=== PATIENT | female | born 1960 | race Caucasian/White ===

== ENCOUNTER → 2016-09-18 | Outpatient (CLI) | payer BC ==
[~2016-09-18] MED LIST: ALBUAER2 INH; ATOR-22 PO; CLCC1250 PO; CLON0.5T3 PO; CYM60 PO; PRLSR20 PO; SYN100 PO; TRAM-10 PO
--- NOTE | 2016-09-18 13:39 | DIAGNOSTIC IMAGING REPORT ---
LUMBAR SPINE 5 VIEWS CLINICAL HISTORY: Chronic low back pain. FINDINGS: 5 views of the lumbar spine are compared to study dated 06/14/2015. The skeletal structures are osteopenic. There is no radiographic evidence of fracture or malalignment. Vertebral body height and alignment are maintained. There is mild straightening of the lumbar lordosis. The transverse and spinous processes are intact. There is no evidence of spondylolysis. The intervertebral disc spaces are well-maintained. Minimal facet arthropathy is seen in the lower lumbar region. The visualized bony pelvis appears intact. Mild sclerotic change is noted in the sacroiliac joints. There is a nonobstructed abdominal bowel gas pattern. Cholecystectomy clips are seen in the right upper quadrant. A surgical clip is also noted in the right pelvis. IMPRESSION: There is no acute bony abnormality seen involving the lumbosacral spine and there is been no significant change from 06/14/2015. Electronically signed by: Balaji Dodge M.D. 09/18/2016 1:37 PM Dictated Date/Time: 09/18/2016 1:35 PM
--- NOTE | 2016-09-18 13:42 | DIAGNOSTIC IMAGING REPORT ---
SI JOINTS 3 OR MORE VIEWS CLINICAL HISTORY: Back pain COMPARISON STUDY: 06/14/2015 FINDINGS: No fractures are visualized. There is no evidence of SI joint fusion. There are no erosive changes. IMPRESSION: No evidence of an inflammatory sacroiliitis. No evidence of fracture Electronically signed by: Christian Mccarthy M.D. 09/18/2016 1:41 PM Dictated Date/Time: 09/18/2016 1:40 PM
== END | disposition home or self-care (01) ==
LOC: C.RAD1850 13:10
DX: M47.9 Spondylosis, unspecified (principal); M54.5 Low back pain

== ENCOUNTER → 2016-12-24 | Outpatient (CLI) | payer BC | END | disposition home or self-care (01) | LOC: C.LABSPEC 17:00 | DX: R30.0 Dysuria (principal) ==

== ENCOUNTER → 2017-03-06 | Outpatient (CLI) | payer BC | END | disposition home or self-care (01) | LOC: C.LABSPEC 14:25 | DX: N39.0 Urinary tract infection, site not specified (principal) ==

== ENCOUNTER → 2018-01-06 | Outpatient (CLI) | payer OTHER ==
[~2018-01-06] MED LIST changes: -CLON0.5T3 PO; +KLN/5 PO
== END | disposition home or self-care (01) ==
LOC: C.MAMM 09:08
DX: M85.88 Other specified disorders of bone density and structure, other site (principal); M85.851 Other specified disorders of bone density and structure, right thigh; M85.852 Other specified disorders of bone density and structure, left thigh

== ENCOUNTER → 2018-01-06 | Outpatient (CLI) | payer OTHER ==
--- NOTE | 2018-01-06 15:35 | DIAGNOSTIC IMAGING REPORT ---
CHEST 2 VIEWS ROUTINE CLINICAL HISTORY: 57 years-old Female presenting with TIA. TECHNIQUE: PA and lateral views of the chest were obtained. COMPARISON: 06/14/2015. FINDINGS: Cardiomediastinal silhouette normal. Lungs and pleural spaces clear. Osseous structures normal. Upper abdomen normal. IMPRESSION: 1. No acute cardiopulmonary disease. Electronically signed by: Ishaan Issa M.D. 01/06/2018 3:34 PM Dictated Date/Time: 01/06/2018 3:33 PM
[2018-01-06 16:20] LABS: CKMB < 1.0 ng/ml (0.5-3.6)
== END | disposition home or self-care (01) ==
LOC: C.CPL 14:53
DX: G45.9 Transient cerebral ischemic attack, unspecified (principal); R07.9 Chest pain, unspecified

== ENCOUNTER 2022-11-26 17:20 | Inpatient (IN) ==
--- NOTE | 2022-11-26 18:59 | History & Physical Report ---
Date of Service November 26, 2022 Assessment & Plan (1) Dysphagia: Plan: with odynophagia and history of oral thrush High risk of candidiasis with immunosuppressed state Will defer treatment on admission as minimal thrush on hard palate and wish to confirm diagnosis on EGD tomorrow Consult GI for consideration of EGD (2) Oral thrush: (3) Mouth ulcers: Plan: Mainly on lips - no pictures available to see if classical HSV blisters. No improvement on Valtrex or acyclovir but I'm also not sure she was taking this consistently as it Will defer treatment on admission but could consider IV acyclovir while here but currently crusted over and not classical for HSV therefore will defer for oncology tomorrow - could consider ID consult Concern for mucositis although no actual ulcers in her mouth I could see - consult oncology, certainly would rule out esophageal candidiasis prior to treatment with steroids. Magic mouth wash for pain (4) Bilateral conjunctivitis: Plan: Discharge with lack of eye pain - suspect conjunctivitis rather than uveitis on admission No ongoing discharge to suggest bacterial Biofire PCR order Continue to monitor for eye pain suggestive of uveitis (5) Lung cancer: Plan: Prior treated with Keytruda and radiation Switch pain management to IV morphine as oral morphine causing her lip swelling to be worse Continue lorazepam to help with anxiety and sleep Continue cough syrup to help with this (6) Electrolyte abnormality: Plan: Magnesium and potassium supplementation IV ordered (7) Hypertension: Plan: Discontinue lisinopril as possible angioedema and suspect she does not need this for her BP with recent weight loss Plan VTE Prophyalxis - deferred pending need for EGD Diet - regular minced and moist, NPO after midnight Disposition - admit to med/surg Admission and Anticipated Discharge Date Admission Date: November 26, 2022 History of Present Illness Chief Complaint: Mouth pain and lip ulcers, failure to thrive, weight loss Primary Care Provider: Antonio Luna DO Cindi Santiago is a 62 year old female with metastatic pleomorphic carcinoma of the lung who is directly admitted from the oncology office due to failure to thrive, mouth ulcers, weight loss and decreased oral intake. She has been treated with radiation and Keytruda with last treatment on November 19. She reports fatigue and generalized weakness with these treatments with a dry cough. Her current main issues however are dysphagia, odynophagia, mouth pain, lip swelling with ulcers. Initially started with lip swelling with one lesion on her lip around November 12. She thought is was radiation luciano initially just on her lower lip. Since then it has been slowly getting worse every day with subsequent pain in her mouth. She was treated initially with Levaquin on November [address] Jesus reportedly for the swelling. Pulmonology treated her for thrush on November 12 which she reports initially helped but she is no longer taking, she also stopped her Trelegy Ellipta to help with this. She was given Valtrex on November 19 after an ER visit and then switched to acyclovir by her oncologist on November 20 - presumably for HSV. She has been given liquid morphine for pain but feels her lip swelling is worse on this and has not taken it for a couple of days. She was seen by oncology today and some concern for mucositis secondary to Keytruda and also patient with weight loss of 7lb over the last week. Requesting admission for possible EGD and rheumatology consult. Allergies Allergy/AdvReac Type Severity Reaction Status Date / Time latex Allergy Unknown rash Verified 10/31/22 09:16 acetaminophen [From Percocet] AdvReac Verified 10/31/22 09:16 oxycodone [From Percocet] AdvReac Verified 10/31/22 09:16 SULFA Allergy Unknown Uncoded 10/31/22 09:16 Home Medications Medication Instructions Recorded Confirmed Type albuterol sulfate 90 mcg/actuation 2 puff inhalation Q6H PRN 09/08/21 11/26/22 History aerosol inhaler Shortness Of Breath cholecalciferol (vitamin D3) 50 50 mcg PO DAILY 09/08/21 11/26/22 History mcg (2,000 unit) capsule lisinopril 40 mg tablet 40 mg PO DAILY 09/08/21 11/26/22 History multivit with 1 tab PO DAILY 09/08/21 11/26/22 History ppxaxvga-qttt-QY-lutein 8 mg iron-400 mcg-300 mcg tablet (Centrum Silver Women) pantoprazole 40 mg tablet,delayed 40 mg PO DAILY 01/12/22 11/26/22 History release (Protonix) aspirin 81 mg tablet,delayed 81 mg PO DAILY #30 tabs 04/25/22 11/26/22 Rx release calcium carbonate 500 mg-vitamin 1 tab PO DAILY #30 tabs 04/25/22 11/26/22 Rx D3 15 mcg (600 unit) tablet (Os-Drew 500 + D3) tramadol 50 mg tablet 50 mg PO Q4H PRN pain #30 tabs 06/12/22 11/26/22 Rx morphine 100 mg/5 mL oral 10 mg PO .Q4-6H PRN Pain 09/05/22 11/26/22 History concentrate prochlorperazine maleate 10 mg 10 mg PO Q6H PRN Nausea 09/05/22 11/26/22 History tablet (Compazine) levothyroxine 112 mcg tablet 112 mcg PO DAILY #90 tabs 09/17/22 11/26/22 Rx (Synthroid) fluticasone fur. 100 mcg-umeclid 1 inh inhalation DAILY #60 ea 10/08/22 11/26/22 Rx 62.5 mcg-vilant 25 mcg inhalat.powder (Trelegy Ellipta) compressor, for nebulizer #1 ea 11/12/22 11/12/22 Rx nebulizer accessories #2 ea 11/12/22 11/12/22 Rx ondansetron 8 mg disintegrating 8 mg PO Q8H #90 tabs 11/12/22 11/26/22 Rx tablet ipratropium 0.5 mg-albuterol 3 mg 3 ml inhalation Q4H PRN shortness 11/15/22 11/26/22 Rx (2.5 mg base)/3 mL nebulization of breath or wheezing #180 mL soln hydrocodone-homatropine 5 mg-1.5 5 ml PO Q6H PRN cough #200 mL 11/18/22 11/26/22 Rx mg/5 mL (5 mL) oral syrup (Hycodan) lidocaine HCl 2 % mucosal solution 2.5 ml mucous membrane BID PRN 11/18/22 11/26/22 Rx (Lidocaine Viscous) mouth pain #100 mL lorazepam 1 mg tablet 1 mg PO Q8H PRN Anxiety / insomnia 11/26/22 11/26/22 History Past Med/Surg History Medical History (Updated 11/26/22 @ 22:37 by Jaspal Doherty MD) Abnormal CT scan of lung Acid reflux Pace esophagus Brain metastases 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 Diverticulosis GROSS (dyspnea on exertion) Fibromyalgia Graves disease Hemoptysis Hiatal hernia Hypercholesteremia Hypertension IBS (irritable bowel syndrome) 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 Lung mass Malignant neoplasm of lower lobe, right bronchus or lung Mediastinal adenopathy Ovarian cyst Pulmonary nodule Recurrent urinary tract infection Thyroid disorder Surgical History H/O endoscopy H/O shoulder surgery Right shoulder - rotator cuff surgery H/O: hysterectomy History of cholecystectomy History of colonoscopy History of surgery Benign left breast removed at 13yo - benign per pt S/P bronchoscopy Family History Mother Heart disease Cancer Stroke Diabetes Aunt Cancer Lung cancer Uncle Cancer Father Ruptured aortic aneurysm Hypertension Sister Aortic aneurysm Sister No problems noted. Brother No problems noted. Son No problems noted. Daughter No problems noted. Daughter History of brain surgery Multiple sclerosis Social History Smoking Status: Former smoker Age Started Using Tobacco: 13; Age Quit Using Tobacco: 60; packs per day: 0.5; Cigarettes Per Day: 1/2 PPD x 25yrs; Second Hand Exposure: Yes; Do You Dip or Chew Tobacco: No; Hx Alcohol Use: No Hx Substance Use: No Preferred Language: Bhutanese Communication Ability: Effective Visual Impairment: No Limitations Hearing Ability: Normal Wax Engraver Required: No Beliefs That Will Affect Care: None marital status: Current Living Situation: Family current occupational status: retired How many Children do You have: 3 Other Information That Helps Us Care for You: No Feels Safe at Home: Yes Safety Concerns: Feels Safe At This Time Childhood Exposure to Second-Hand Smoke: Yes Diet: regular caffeine: Yes (2 cups/day) during the past year weight has: remained stable Dental Care, Regularly: Yes Physical Activity Frequency: Daily Seatbelt Use: always Sunscreen Use: Yes Assistive Devices: Glasses Review of Systems Review of Systems: All systems reviewed & are unremarkable except as noted in HPI & below Physical Exam Constitutional: well developed; + not well nourished and no acute distress Eyes: + conjunctival abnormality (widespread erythema), PERRL and EOM intact bilaterally ENMT: few white spots on hard palate Tongue is mildly swollen and erythematous No oral ulcers present Crusting of lips which easily bleed, swollen, no blistering present Respiratory: normal respiratory effort, lungs clear to auscultation Cardiovascular: Rate/Rhythm: regular rate and regular rhythm Heart Sounds: no murmur Extremities: normal capillary refill; no calf tenderness and no pedal edema Gastrointestinal (Abdomen): Inspection/Auscultation: abdomen normal to inspection; abdomen not distended Percussion/Palpation: abdomen soft; abdomen nontender, no guarding and abdomen not rigid Musculoskeletal: no cyanosis or clubbing, extremities motor strength 5/5 Skin: Other than lips, no skin rash present Neurologic: moves all extremities and awake; not confused Psychiatric: A+Ox3, euthymic affect Code Status & VTE Plan Code Status Full VTE Prophylaxis Plan VTE Prophylaxis will be ordered: Yes PG Care Time/CCT Total # of Minutes Spent Total Time Spent: 105 Total Time Spent with Patient: Total time spent is greater than 50% in coordination of care (as documented) at patient's floor/unit and/or counseling patient: Coding Level of Care Code 91777 INT INP/OBS CARE 3/75MIN Diagnoses Dysphagia R13.10 Oral thrush B37.0 Mouth ulcers K12.1 Bilateral conjunctivitis H10.9 Lung cancer C34.90 Electrolyte abnormality E87.8 Hypertension I10
[2022-11-26] MEDS ORDERED: MoRPHine SULFATE 2 MG/ML CARP IV PRN (19:57)
[2022-11-26] MEDS ORDERED: ONDANSETRON INJ 2 MG/ML 2 ML VIAL IV PRN (19:57)
[2022-11-26] MEDS ORDERED: HYDROcodone/HOMATROPINE SYRUP 5MG/1.5MG 5ML UDP PO PRN (20:03)
[2022-11-26 20:14] LABS: C Reactive Protein 5.82 mg/dl (0-0.5)
[2022-11-26] MEDS: POTASSIUM CHLORIDE / WTR 10 MEQ/100 ML PLCT IV SCH ×2 (20:19→23:26)
[2022-11-26 20:23] LABS: INR 1.1 (0.9-1.1); Partial Thromboplastin Ratio 0.9; Partial Thromboplastin Time 24.4 Seconds (21.0-31.0); Prothrombin Time 11.7 Seconds (9.0-12.0)
[2022-11-26] MEDS: FIRST - Mouthwash BLM 119 ML PO PRN (21:02)
[2022-11-26] MEDS: PANTOprazole 40 MG in SYRINGE 0 ML IV SCH (21:05)
[2022-11-26 22:12] LABS: Adenovirus PCR Not Detected (NotDetected); Bordetella parapertussis PCR Not Detected (NotDetected); Bordetella pertussis PCR Not Detected (NotDetected); Chlamydia pneumoniae PCR Not Detected (NotDetected); Coronavirus 229E PCR Not Detected (NotDetected); Coronavirus CoV-2 (COVID19)PCR Not Detected (NotDetected); Coronavirus HKU1 PCR Not Detected (NotDetected); Coronavirus NL63 PCR Not Detected (NotDetected); Coronavirus OC43PCR Not Detected (NotDetected); Human Metapneumovirus PCR Not Detected (NotDetected); Influenza A PCR Not Detected (NotDetected); Influenza B PCR Not Detected (NotDetected); Mycoplasma pneumoniae PCR Not Detected (NotDetected); Parainfluenza Virus 1 PCR Not Detected (NotDetected); Parainfluenza Virus 2 PCR Not Detected (NotDetected); Parainfluenza Virus 3 PCR Not Detected (NotDetected); Parainfluenza Virus 4 PCR Not Detected (NotDetected); Respiratory Syncytial VirusPCR Not Detected (NotDetected); Rhinovirus/Enterovirus PCR Not Detected (NotDetected)
[2022-11-26] MEDS: MAGNESIUM SULFATE / D5W 1 GM/100 ML BAG IV SCH (22:23)
[2022-11-26] MEDS: LORazepam 1 MG TAB PO PRN (23:09)
[2022-11-27] MEDS: MAGNESIUM SULFATE / D5W 1 GM/100 ML BAG IV SCH ×2 (00:18→01:43)
[2022-11-27] MEDS: LACTATED RINGER'S 1,000 ML IV SCH ×2 (03:45→16:08)
[2022-11-27] MEDS: LEVOTHYROXINE SODIUM 112 MCG TABLET PO SCH (06:01)
[2022-11-27] MEDS: FIRST - Mouthwash BLM 119 ML PO PRN ×2 (06:03→20:54)
[2022-11-27 06:54] LABS: Appearance Urine Clear (Clear); Bacteria Urine Automated Negative (Negative); Bilirubin Urine Negative (Negative); Blood Urine 2+ (Negative); Color Urine Yellow; Epithelial Cell Urine Auto >30 /lpf (0-5); Glucose Urine UA Negative (Negative); Ketones Urine 1+ (Negative); Leukocyte Esterase Urine 1+ (Negative); Nitrite Urine Negative (Negative); Protein Urine Negative (Negative); Specific Gravity Urine 1.015 (1.000-1.030); Urobilinogen Urine Negative (Negative); pH Urine 5.5 (4.5-7.5)
[2022-11-27 07:26] LABS: Albumin Globulin Ratio 0.9 (0.9-2); BUN Creatinine Ratio 15.1 (10-20); Bilirubin,Total 0.4 mg/dl (0.2-1.0); Calcium 8.3 mg/dl (8.6-10.3); Creatinine Clr Calc Pharmacy 96.5 ml/min; Est GFR (African American) 116.3 ml/min; Est GFR (Non-African American) 100.3 ml/min; Globulin 3.5 gm/dl (2.5-4.0); Magnesium 2.3 mg/dl (1.7-2.4); Phosphorus 3.1 mg/dl (2.5-4.9); Potassium 3.5 mmol/L (3.5-5.1); Total Protein 6.5 gm/dl (6.0-8.3)
[2022-11-27 07:30] LABS: Basophils # (auto) 0.03 K/uL (0-0.2); Basophils % (auto) 0.4 %; Eosinophils % (auto) 2.4 %; Hematocrit (blood only) 33.9 % (37.0-47.0); Hemoglobin 11.4 g/dl (12.0-16.0); Immature Granulocytes # (auto) 0.03 K/uL (0.01-0.20); Immature Granulocytes % (auto) 0.4 %; Lymphocytes # (auto) 1.35 K/uL (1.2-3.4); Lymphocytes % (auto) 16.3 %; Mean Corpuscular Hemoglobin 30.1 pg (25.0-34.0); Mean Corpuscular Hgb Conc 33.6 g/dL (32.0-36.0); Mean Corpuscular Volume 89.4 fL (80.0-100.0); Mean Platelet Volume 9.5 fL (9.4-12.4); Monocytes # (auto) 0.55 K/uL (0.11-0.59); Monocytes % (auto) 6.6 %; Neutrophils # (auto) 6.13 K/uL (1.40-6.50); Neutrophils % (auto) 73.9 %; Platelet Count 436 K/uL (130-400); RDW Coefficient of Variation 15.1 % (11.5-14.5); RDW Standard Deviation 49.1 fL (36.4-46.3); Red Blood Count 3.79 M/uL (4.20-5.40); White Blood Count 8.29 K/ul (4.8-10.8)
--- NOTE | 2022-11-27 08:54 | Gastrointestinal Consultation ---
Date of Consultation November 27, 2022 Assessment & Plan (1) Dysphagia: Pleasant woman with dysphagia. From my interview with her it seems that most of her troubles are oropharyngeal and not esophageal. I would begin the workup with ENT or oral surgery consultation rather than EGD. I do not visualize the oropharynx as well with endoscope as well as ENT does. If they do not find anything that explains her problems then I can do EGD. I will follow History of Present Illness Reason for Consultation: dysphagia Attending Physician: Huan Almonte DO History of Present Illness 62 year old female who is being treated for lung cancer. She has had radiation to her upper chest. She is getting chemotherapy. Recently she has developed mouth ulcers and difficulty swallowing. On close questioning she says it is painful in her neck/mouth area when she swallows and she feels like she chokes when she initiates a swallow. Once it gets into her chest/esophagus she doesn't have any pain although she says on occasion it feels like it goes slow. She does not have dysphagia. All of this is relatively new. She has had an EGD she says about a year ago and a colonoscopy several months ago at [facility]. Allergies Allergy/AdvReac Type Severity Reaction Status Date / Time latex Allergy Unknown rash Verified 10/31/22 09:16 acetaminophen [From Percocet] AdvReac Verified 10/31/22 09:16 oxycodone [From Percocet] AdvReac Verified 10/31/22 09:16 SULFA Allergy Unknown Uncoded 10/31/22 09:16 Home Medications Medication Instructions Recorded Confirmed Type albuterol sulfate 90 mcg/actuation 2 puff inhalation Q6H PRN 09/08/21 11/26/22 History aerosol inhaler Shortness Of Breath cholecalciferol (vitamin D3) 50 50 mcg PO DAILY 09/08/21 11/26/22 History mcg (2,000 unit) capsule lisinopril 40 mg tablet 40 mg PO DAILY 09/08/21 11/26/22 History multivit with 1 tab PO DAILY 09/08/21 11/26/22 History qreotazo-hqrk-ID-lutein 8 mg iron-400 mcg-300 mcg tablet (Centrum Silver Women) pantoprazole 40 mg tablet,delayed 40 mg PO DAILY 01/12/22 11/26/22 History release (Protonix) aspirin 81 mg tablet,delayed 81 mg PO DAILY #30 tabs 04/25/22 11/26/22 Rx release calcium carbonate 500 mg-vitamin 1 tab PO DAILY #30 tabs 04/25/22 11/26/22 Rx D3 15 mcg (600 unit) tablet (Os-Drew 500 + D3) tramadol 50 mg tablet 50 mg PO Q4H PRN pain #30 tabs 06/12/22 11/26/22 Rx morphine 100 mg/5 mL oral 10 mg PO .Q4-6H PRN Pain 09/05/22 11/26/22 History concentrate prochlorperazine maleate 10 mg 10 mg PO Q6H PRN Nausea 09/05/22 11/26/22 History tablet (Compazine) levothyroxine 112 mcg tablet 112 mcg PO DAILY #90 tabs 09/17/22 11/26/22 Rx (Synthroid) fluticasone fur. 100 mcg-umeclid 1 inh inhalation DAILY #60 ea 10/08/22 11/26/22 Rx 62.5 mcg-vilant 25 mcg inhalat.powder (Trelegy Ellipta) compressor, for nebulizer #1 ea 11/12/22 11/12/22 Rx nebulizer accessories #2 ea 11/12/22 11/12/22 Rx ondansetron 8 mg disintegrating 8 mg PO Q8H #90 tabs 11/12/22 11/26/22 Rx tablet ipratropium 0.5 mg-albuterol 3 mg 3 ml inhalation Q4H PRN shortness 11/15/22 11/26/22 Rx (2.5 mg base)/3 mL nebulization of breath or wheezing #180 mL soln hydrocodone-homatropine 5 mg-1.5 5 ml PO Q6H PRN cough #200 mL 11/18/22 11/26/22 Rx mg/5 mL (5 mL) oral syrup (Hycodan) lidocaine HCl 2 % mucosal solution 2.5 ml mucous membrane BID PRN 11/18/22 11/26/22 Rx (Lidocaine Viscous) mouth pain #100 mL lorazepam 1 mg tablet 1 mg PO Q8H PRN Anxiety / insomnia 11/26/22 11/26/22 History Patient History Medical History Abnormal CT scan of lung Acid reflux Pace esophagus Brain metastases 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 Diverticulosis GROSS (dyspnea on exertion) Fibromyalgia Graves disease Hemoptysis Hiatal hernia Hypercholesteremia Hypertension IBS (irritable bowel syndrome) 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 Lung mass Malignant neoplasm of lower lobe, right bronchus or lung Mediastinal adenopathy Ovarian cyst Pulmonary nodule Recurrent urinary tract infection Thyroid disorder Surgical History H/O endoscopy H/O shoulder surgery Right shoulder - rotator cuff surgery H/O: hysterectomy History of cholecystectomy History of colonoscopy History of surgery Benign left breast removed at 13yo - benign per pt S/P bronchoscopy Family History Mother , 84yo Heart disease aortic aneurysm Cardiac stents Cancer Pt unsure of type Stroke Diabetes Aunt Cancer Lung cancer Uncle Cancer Father , 68yo Ruptured aortic aneurysm Hypertension Sister Aortic aneurysm Sister No problems noted. Brother No problems noted. Son No problems noted. Daughter No problems noted. Daughter History of brain surgery [place] [facility] [place] Social History Smoking Status: Former smoker Age Started Using Tobacco: 13; Age Quit Using Tobacco: 60; packs per day: 0.5; Cigarettes Per Day: 1/2 PPD x 25yrs; Second Hand Exposure: Yes; Do You Dip or Chew Tobacco: No; Hx Alcohol Use: No Hx Substance Use: No Preferred Language: [place]gu[place] Communication Ability: Effective Visual Impairment: No Limitations Hearing Ability: Normal Information Systems Technician Required: No Beliefs That Will Affect Care: None marital status: Current Living Situation: Family current occupational status: retired How many Children do You have: 3 Other Information That Helps Us Care for You: No Feels Safe at Home: Yes Safety Concerns: Feels Safe At This Time Childhood Exposure to Second-Hand Smoke: Yes Diet: regular caffeine: Yes (2 cups/day) during the past year weight has: remained stable Dental Care, Regularly: Yes Physical Activity Frequency: Daily Seatbelt Use: always Sunscreen Use: Yes Assistive Devices: Glasses Review of Systems Review of Systems: All systems reviewed & are unremarkable except as noted in HPI & below Physical Exam Constitutional: WD/WN, vitals as above no acute distress Eyes: PERRL, conjunctivae normal, anicteric sclerae ENMT: external ear and nose normal, oropharynx normal Mouth: + lip abnormality (numerous blisters) Neck: trachea midline, no thyromegaly Respiratory: normal respiratory effort, lungs clear to auscultation Cardiovascular: RRR, no murmur, no edema Gastrointestinal (Abdomen): normal bowel sounds, soft, nontender, no hepatosplenomegaly Musculoskeletal: Extremities: no cyanosis and no clubbing Skin: no rashes, warm and dry Neurologic: PERRL, EOMI, accommodation nl, no face palsy, no dysarthria Psychiatric: Orientation: alert and oriented x 3 Results & Data Vital Signs (Past 12 Hours) Vital Signs Temp Pulse Resp BP Pulse Ox O2 Del Method 11/27/22 06:46 37.4 C 75 16 105/72 97 Room Air 11/27/22 00:20 36.7 C 80 16 126/80 96 Room Air Laboratory Results 11/27/22 11/27/22 11/27/22 Range/Units 06:45 06:32 06:32 WBC 8.29 (4.8-10.8) K/ul RBC 3.79 L (4.20-5.40) M/uL Hgb 11.4 L (12.0-16.0) g/dl Hct 33.9 L (37.0-47.0) % MCV 89.4 (80.0-100.0) fL MCH 30.1 (25.0-34.0) pg MCHC 33.6 (32.0-36.0) g/dL RDW Std Deviation 49.1 H (36.4-46.3) fL RDW Coeff of Timbo 15.1 H (11.5-14.5) % Plt Count 436 H (130-400) K/uL MPV 9.5 (9.4-12.4) fL Immature Gran % (Auto) 0.4 % Neut % (Auto) 73.9 % Lymph % (Auto) 16.3 % [place]bot % (Auto) 6.6 % Eos % (Auto) 2.4 % Baso % (Auto) 0.4 % Neut # (Auto) 6.13 (1.40-6.50) K/uL Lymph # (Auto) 1.35 (1.2-3.4) K/uL [place] # (Auto) 0.55 (0.11-0.59) K/uL Eos # (Auto) 0.20 (0-0.50) K/uL Baso # (Auto) 0.03 (0-0.2) K/uL Immature Gran # (Auto) 0.03 (0.01-0.20) K/uL ESR (0-30) mm/hr PT (9.0-12.0) Seconds INR (0.9-1.1) APTT (21.0-31.0) Seconds PTT Ratio Sodium 135 L (136-145) mmol/L Potassium 3.5 (3.5-5.1) mmol/L Chloride 102 (98-107) mmol/L Carbon Dioxide 27 (21-32) mmol/L Anion Gap 6 (3-11) BUN 8 (6-23) mg/dl Creatinine 0.53 L (0.6-1.2) mg/dl Est Cr Clr Drug Dosing 96.5 ml/min Est GFR ( Amer) 116.3 ml/min Est GFR (Non-Af Amer) 100.3 ml/min BUN/Creatinine Ratio 15.1 (10-20) Glucose 92 (70-99(Fasting)) mg/dl Calcium 8.3 L (8.6-10.3) mg/dl Phosphorus 3.1 (2.5-4.9) mg/dl Magnesium 2.3 (1.7-2.4) mg/dl Total Bilirubin 0.4 (0.2-1.0) mg/dl AST 13 (13-39) U/L ALT 4 L (7-52) U/L Alkaline Phosphatase 54 (34-104) U/L C-Reactive Protein (0-0.5) mg/dl Total Protein 6.5 (6.0-8.3) gm/dl Albumin 3.0 L (3.4-5.0) gm/dl Globulin 3.5 (2.5-4.0) gm/dl Albumin/Globulin Ratio 0.9 (0.9-2) Lipase (11-82) U/L Procalcitonin (0-0.5) ng/ml Urine Color Yellow Urine Appearance Clear (Clear) Urine pH 5.5 (4.5-7.5) Ur Specific [place] 1.015 (1.000-1.030) Urine Protein Negative (Negative) Urine Glucose (UA) Negative (Negative) Urine Ketones 1+ H (Negative) Urine Blood 2+ H (Negative) Urine Nitrite Negative (Negative) Urine Bilirubin Negative (Negative) Urine Urobilinogen Negative (Negative) Ur Leukocyte Esterase 1+ H (Negative) Urine WBC (Auto) 5-10 H (0-5) /hpf Urine RBC (Auto) 5-10 H (0-4) /hpf U Hyaline Cast (Auto) 5-10 H (0-5) /lpf U Epithel Cells (Auto) >30 H (0-5) /lpf Urine Bacteria (Auto) Negative (Negative) Adenovirus (PCR) (NotDetected) B. pertussis DNA (PCR) (NotDetected) B.parapertussis DNA PCR (NotDetected) C. pneumoniae DNA (PCR) (NotDetected) Coronavirus OC43 (PCR) (NotDetected) Coronavirus HKU1 (PCR) (NotDetected) Coronavirus 229E (PCR) (NotDetected) SARS-CoV-2 (PCR) (NotDetected) Coronavirus NL63 (PCR) (NotDetected) Human Metapneumovir PCR (NotDetected) Influenza Type A (PCR) (NotDetected) Influenza Type B (PCR) (NotDetected) M. pneumoniae (PCR) (NotDetected) Parainfluenza 1 (PCR) (NotDetected) Parainfluenza 2 (PCR) (NotDetected) Parainfluenza 3 (PCR) (NotDetected) Parainfluenza 4 (PCR) (NotDetected) RSV (PCR) (NotDetected) Entero/Rhino (PCR) (NotDetected) 11/26/22 11/26/22 11/26/22 Range/Units 20:30 20:30 19:24 WBC (4.8-10.8) K/ul RBC (4.20-5.40) M/uL Hgb (12.0-16.0) g/dl Hct (37.0-47.0) % MCV (80.0-100.0) fL MCH (25.0-34.0) pg MCHC (32.0-36.0) g/dL RDW Std Deviation (36.4-46.3) fL RDW Coeff of Timbo (11.5-14.5) % Plt Count (130-400) K/uL MPV (9.4-12.4) fL Immature Gran % (Auto) % Neut % (Auto) % Lymph % (Auto) % Talbot % (Auto) % Eos % (Auto) % Baso % (Auto) % Neut # (Auto) (1.40-6.50) K/uL Lymph # (Auto) (1.2-3.4) K/uL [place] # (Auto) (0.11-0.59) K/uL Eos # (Auto) (0-0.50) K/uL Baso # (Auto) (0-0.2) K/uL Immature Gran # (Auto) (0.01-0.20) K/uL ESR (0-30) mm/hr PT 11.7 (9.0-12.0) Seconds INR 1.1 (0.9-1.1) APTT 24.4 (21.0-31.0) Seconds PTT Ratio 0.9 Sodium (136-145) mmol/L Potassium (3.5-5.1) mmol/L Chloride (98-107) mmol/L Carbon Dioxide (21-32) mmol/L Anion Gap (3-11) BUN (6-23) mg/dl Creatinine (0.6-1.2) mg/dl Est Cr Clr Drug Dosing ml/min Est GFR ( Amer) ml/min Est GFR (Non-Af Amer) ml/min BUN/Creatinine Ratio (10-20) Glucose (70-99(Fasting)) mg/dl Calcium (8.6-10.3) mg/dl Phosphorus (2.5-4.9) mg/dl Magnesium (1.7-2.4) mg/dl Total Bilirubin (0.2-1.0) mg/dl AST (13-39) U/L ALT (7-52) U/L Alkaline Phosphatase (34-104) U/L C-Reactive Protein (0-0.5) mg/dl Total Protein (6.0-8.3) gm/dl Albumin (3.4-5.0) gm/dl Globulin (2.5-4.0) gm/dl Albumin/Globulin Ratio (0.9-2) Lipase (11-82) U/L Procalcitonin (0-0.5) ng/ml Urine Color Urine Appearance (Clear) Urine pH (4.5-7.5) Ur Specific [place] (1.000-1.030) Urine Protein (Negative) Urine Glucose (UA) (Negative) Urine Ketones (Negative) Urine Blood (Negative) Urine Nitrite (Negative) Urine Bilirubin (Negative) Urine Urobilinogen (Negative) Ur Leukocyte Esterase (Negative) Urine WBC (Auto) (0-5) /hpf Urine RBC (Auto) (0-4) /hpf U Hyaline Cast (Auto) (0-5) /lpf U Epithel Cells (Auto) (0-5) /lpf Urine Bacteria (Auto) (Negative) Adenovirus (PCR) Not Detected (NotDetected) B. pertussis DNA (PCR) Not Detected (NotDetected) B.parapertussis DNA PCR Not Detected (NotDetected) C. pneumoniae DNA (PCR) Not Detected (NotDetected) Coronavirus OC43 (PCR) Not Detected (NotDetected) Coronavirus HKU1 (PCR) Not Detected (NotDetected) Coronavirus 229E (PCR) Not Detected (NotDetected) SARS-CoV-2 (PCR) Cancelled Not Detected (NotDetected) Coronavirus NL63 (PCR) Not Detected (NotDetected) Human Metapneumovir PCR Not Detected (NotDetected) Influenza Type A (PCR) Not Detected (NotDetected) Influenza Type B (PCR) Not Detected (NotDetected) M. pneumoniae (PCR) Not Detected (NotDetected) Parainfluenza 1 (PCR) Not Detected (NotDetected) Parainfluenza 2 (PCR) Not Detected (NotDetected) Parainfluenza 3 (PCR) Not Detected (NotDetected) Parainfluenza 4 (PCR) Not Detected (NotDetected) RSV (PCR) Not Detected (NotDetected) Entero/Rhino (PCR) Not Detected (NotDetected) 07/03/23 07/03/23 07/03/23 Range/Units 19:24 19:24 19:24 WBC (4.8-10.8) K/ul RBC (4.20-5.40) M/uL Hgb (12.0-16.0) g/dl Hct (37.0-47.0) % MCV (80.0-100.0) fL MCH (25.0-34.0) pg MCHC (32.0-36.0) g/dL RDW Std Deviation (36.4-46.3) fL RDW Coeff of Timbo (11.5-14.5) % Plt Count (130-400) K/uL MPV (9.4-12.4) fL Immature Gran % (Auto) % Neut % (Auto) % Lymph % (Auto) % [place] % (Auto) % Eos % (Auto) % Baso % (Auto) % Neut # (Auto) (1.40-6.50) K/uL Lymph # (Auto) (1.2-3.4) K/uL [place] # (Auto) (0.11-0.59) K/uL Eos # (Auto) (0-0.50) K/uL Baso # (Auto) (0-0.2) K/uL Immature Gran # (Auto) (0.01-0.20) K/uL ESR 65 H (0-30) mm/hr PT (9.0-12.0) Seconds INR (0.9-1.1) APTT (21.0-31.0) Seconds PTT Ratio Sodium (136-145) mmol/L Potassium (3.5-5.1) mmol/L Chloride (98-107) mmol/L Carbon Dioxide (21-32) mmol/L Anion Gap (3-11) BUN (6-23) mg/dl Creatinine (0.6-1.2) mg/dl Est Cr Clr Drug Dosing ml/min Est GFR ( Amer) ml/min Est GFR (Non-Af Amer) ml/min BUN/Creatinine Ratio (10-20) Glucose (70-99(Fasting)) mg/dl Calcium (8.6-10.3) mg/dl Phosphorus (2.5-4.9) mg/dl Magnesium (1.7-2.4) mg/dl Total Bilirubin (0.2-1.0) mg/dl AST (13-39) U/L ALT (7-52) U/L Alkaline Phosphatase (34-104) U/L C-Reactive Protein 5.82 H (0-0.5) mg/dl Total Protein (6.0-8.3) gm/dl Albumin (3.4-5.0) gm/dl Globulin (2.5-4.0) gm/dl Albumin/Globulin Ratio (0.9-2) Lipase 40 (11-82) U/L Procalcitonin 0.09 (0-0.5) ng/ml Urine Color Urine Appearance (Clear) Urine pH (4.5-7.5) Ur Specific [place] (1.000-1.030) Urine Protein (Negative) Urine Glucose (UA) (Negative) Urine Ketones (Negative) Urine Blood (Negative) Urine Nitrite (Negative) Urine Bilirubin (Negative) Urine Urobilinogen (Negative) Ur Leukocyte Esterase (Negative) Urine WBC (Auto) (0-5) /hpf Urine RBC (Auto) (0-4) /hpf U Hyaline Cast (Auto) (0-5) /lpf U Epithel Cells (Auto) (0-5) /lpf Urine Bacteria (Auto) (Negative) Adenovirus (PCR) (NotDetected) B. pertussis DNA (PCR) (NotDetected) B.parapertussis DNA PCR (NotDetected) C. pneumoniae DNA (PCR) (NotDetected) Coronavirus OC43 (PCR) (NotDetected) Coronavirus HKU1 (PCR) (NotDetected) Coronavirus 229E (PCR) (NotDetected) SARS-CoV-2 (PCR) (NotDetected) Coronavirus NL63 (PCR) (NotDetected) Human Metapneumovir PCR (NotDetected) Influenza Type A (PCR) (NotDetected) Influenza Type B (PCR) (NotDetected) M. pneumoniae (PCR) (NotDetected) Parainfluenza 1 (PCR) (NotDetected) Parainfluenza 2 (PCR) (NotDetected) Parainfluenza 3 (PCR) (NotDetected) Parainfluenza 4 (PCR) (NotDetected) RSV (PCR) (NotDetected) Entero/Rhino (PCR) (NotDetected)
[2022-11-27] MEDS ORDERED: lisinopril 40 MG TAB PO SCH (09:00)
[2022-11-27] MEDS: CHOLECALCIFEROL 1,000 UNITS 25 MCG TAB PO SCH (09:27)
--- NOTE | 2022-11-27 10:02 | Hospitalist Progress Note ---
Date of Service November 27, 2022 Assessment & Plan (1) Mouth ulcers: Plan: 62 yo female with pmh of metastatic pleomorphic carcinoma of the lung, s/p radiation and immunotherapy treatment, presenting with 6 weeks mouth sores, lip ulcers, and increased mucus production. Mouth sores and odynophagia Combined with uveitis, high suspicion for immunotherapy induced reaction. With odynophagia and history of oral thrush, no improvement on Valtrex or acyclovir; thrush HSV less likely Mucositis vs Thrush, Treated with nystatin with minimal improvement - GI Consult: [place] that the this was more oropharyngeal vs esophageal. Recommended consulting ENT. - Consulting Rheumatology for insight regarding the clinical assessment. - Magic mouth wash for pain (2) Bilateral conjunctivitis: Plan: Has had inflammatory reactions to Keytruda treatment previous (colitis, pneumonitis). Has now developed eye pain, discharge and erythematous, Conjunctivitis vs. uveitis No ongoing discharge to suggest bacterial etiology - Biofire PCR order (3) Lung cancer: Plan: Prior treatment with Keytruda and radiation - IV morphine, oral morphine causing her lip swelling to be worse - Continue lorazepam to help with anxiety and sleep - Continue cough syrup to help with this (4) Electrolyte abnormality: Plan: - Magnesium and potassium supplementation IV (5) Hypertension: Plan: - Discontinue lisinopril as possible angioedema and suspect she does not need this for her BP with recent weight loss Plan VTE Prophyalxis - deferred pending need for EGD Diet - regular minced and moist, NPO after midnight Disposition - admit to med/surg Admission and Anticipated Discharge Date Admission Date: November 26, 2022 Supervising Physician Co-Signing Physician Notes I personally examined the patient and verified all rasheed points of history and exam, discussed case, and agree with decision making with Doni Mckeon MS4 and Dr Ajay shea hurt, eyes hurt, poor p.o. intake. 20-40 pounds of weight loss in the last few months including about a pound today over the last week. Family presentextensive discussion and answered all questions the best my ability. I did not really look at the clock, but I suspect our conversation lasted the better part of an hour. Vitals noted, in general she is fatigued, her lips are cracked and desquamated in places, her mouth is beefy red and irritated, her eyes show conjunctival injection and lid swelling as well is thin exudate. Breathing unlabored no accessory muscle use, no focal neurodeficits. Failure to thrive --> I most strongly suspect her lip mouth and I issues relate to Keytruda. Considered thrush, but she does not appear characteristic of thrush, the fact that involves the lips and now her eyes would be extremely atypical, and she was on nystatin and did not respond. Considered herpesbut whenever it was blistered on her left forearm is not nearly as painful as it is now, and the rest of her pattern does not really seem to fit herpetic disease, and her eyes certainly would not either. I doubt a bacterial mucositis given her lack of neutropenia/sepsis. Seems Keytruda would be the most likely culprit, and the fact that she has had other Keytruda side effects including Keytruda colitis raises my suspicion even more. Discussed with patient and family I anticipate starting corticosteroids to try to settle out this response, but I did want to get input from ENT and rheumatology before adulterated in the picture with steroids, just to be sure they are not seeing some other diagnosis that would be obvious in their field that I am overlooking. --->malnutrition is definitely a big isssue as well - will need to get mouth/lips feeling better but then will want to talk at length about nutritional goals and how to attain them -->lung cancer - pt/family are realistic about her prognosis, "this might be her last summer" "i just want quality of life with what i have left" - but certainly seems that med ADRs and malnutrition might be a bigger player in acute decline than cancer at this time Subjective No acute events overnight. Today, she has eye pain, fatigue, increased mucus production, mouth pain, odynophagia, and lip ulcers. She described fevers and night sweats beginning in August following her trip from [place]. She had not been in immunotherapy during her time in [place]. In around the middle of September, she had swelling in her lips resulting in blisters. Her pain has increased as they have persisted and blistered have broken over. She has additionally lost over 20 lb in the last 4 weeks, secondary to inability to eat with mouth sores. Review of Systems Constitutional: Denied fever, night sweats, fatigue, weakness, dizziness Eyes: Denied blurry vision Ear, Nose, Mouth, Throat: See HPI Respiratory: Denied cough or shortness of breath. Cardiovascular: Additional Comments: Denied chest pain, palpitations Gastrointestinal: Denied nausea, vomiting, diarrhea, abdominal pain. Neurologic: Denied weaknesss, numbness, or tingling. Physical Exam Constitutional: Alert and oriented x3 in hopsital bed Eyes: Pupils were equal, normal shape, and reactive. There were erythematous conjunctiva. ENMT: blistering ulcers across the lower and upper lips, erythematous mucosal area. Neck: Respiratory: CTA, no increased work of breathing Cardiovascular: Normal rate and regular rhythmn. S1 S2, no r/m/g. Radial pulses equal b/l. Capillary refill less than 2 sec. Gastrointestinal (Abdomen): Nondistended, nontender, normoactive bowel sounds. Musculoskeletal: Upper extremity 5/5 strength Lower extremity 5/5 strength Skin: Warm dry, no apparent rashes. Psychiatric: Appropriate mood and affect. Lymphatic: No lymphadenopathy in the neck and cervical region. Results & Data Results & Data Vital Signs (Past 12 Hours) Vital Signs Temp Pulse Resp BP Pulse Ox O2 Del Method 11/27/22 07:35 Room Air 11/27/22 06:46 37.4 C 75 16 105/72 97 Room Air 11/27/22 00:20 36.7 C 80 16 126/80 96 Room Air
[2022-11-27] MEDS: PANTOprazole 40 MG in SYRINGE 0 ML IV SCH (11:46)
[2022-11-27] MEDS: MoRPHine SULFATE 4 MG/ML 1 ML CARP\\VIAL IV PRN (17:21)
--- NOTE | 2022-11-27 17:39 | Billing Data ---
Date of Service November 27, 2022 Coding Level of Care Code 92071 SUB INP/OBS CARE
[2022-11-27] MEDS: LORazepam 1 MG TAB PO PRN (20:54)
[2022-11-28] MEDS: FIRST - Mouthwash BLM 119 ML PO PRN ×3 (03:26→21:37)
[2022-11-28] MEDS: MoRPHine SULFATE 4 MG/ML 1 ML CARP\\VIAL IV PRN ×2 (03:30→21:43)
[2022-11-28] MEDS: LACTATED RINGER'S 1,000 ML IV SCH ×2 (03:38→15:50)
[2022-11-28] MEDS: LEVOTHYROXINE SODIUM 112 MCG TABLET PO SCH (06:04)
[2022-11-28 07:32] LABS: Basophils # (auto) 0.03 K/uL (0-0.2); Basophils % (auto) 0.4 %; Eosinophils # (auto) 0.13 K/uL (0-0.50); Eosinophils % (auto) 1.6 %; Hematocrit (blood only) 36.4 % (37.0-47.0); Hemoglobin 11.8 g/dl (12.0-16.0); Immature Granulocytes # (auto) 0.03 K/uL (0.01-0.20); Immature Granulocytes % (auto) 0.4 %; Lymphocytes # (auto) 1.05 K/uL (1.2-3.4); Lymphocytes % (auto) 13.3 %; Mean Corpuscular Hemoglobin 29.6 pg (25.0-34.0); Mean Corpuscular Hgb Conc 32.4 g/dL (32.0-36.0); Mean Corpuscular Volume 91.5 fL (80.0-100.0); Mean Platelet Volume 9.3 fL (9.4-12.4); Monocytes # (auto) 0.34 K/uL (0.11-0.59); Monocytes % (auto) 4.3 %; Neutrophils # (auto) 6.34 K/uL (1.40-6.50); Platelet Count 409 K/uL (130-400); RDW Coefficient of Variation 15.1 % (11.5-14.5); RDW Standard Deviation 50.3 fL (36.4-46.3); Red Blood Count 3.98 M/uL (4.20-5.40); White Blood Count 7.92 K/ul (4.8-10.8)
--- NOTE | 2022-11-28 07:34 | Oncology Consultation ---
Date of Consultation November 28, 2022 Assessment & Plan (1) Mouth ulcers: (2) Mucositis: (3) Dysphagia: (4) Lung cancer: Plan Patient with failure to thrive, severe mucositis and possible uveitis likely secondary to immunotherapy with Keytruda -Based on symptoms, appears to have grade 3/4 mucositis. Has been treated for oral thrush and HSV with no improvement in symptoms. Suspect this is likely mucositis due to immunotherapy most especially given prior history of immunotherapy related colitis. Given severity, would recommend starting methylprednisolone 1 to 2 mg/kg/day given IV. -Also recommend ENT evaluation to see if oral/lip biopsy is possible for diagnosis. -Given eye involvement/possible uveitis, may benefit from ophthalmic steroids. Consider evaluation by ophthalmology -For pain, would recommend considering IV opioids especially at night when she has difficulty sleeping. -Defer to GI regarding possible benefit of EGD in the setting of prior history of ICI colitis Thank you for this consult. Oncology continue following patient while in the hospital. Please feel free to call if you have any further questions History of Present Illness Reason for Consultation: Failure to thrive secondary to mucositis Attending Physician: Huan Almonte, DO History of Present Illness Pleasant 62-year-old female with metastatic pleomorphic carcinoma of the lung for which she s/p 6 cycles of chemoimmunotherapy with carboplatin/pemetrexed/pembrolizumab completed in January,. She sub sequently started maintenance pembrolizumab in February,. Patient subsequently developed immunotherapy related colitis for which she was initially on high-dose steroidswith improvement in diarrhea. She was subsequently rechallenged with pembrolizumab in April, and received last dose of treatment on 10/19/2022. She recently completed radiation treatment to right lung mass On 10/16/2022 She presented to oncology clinic a couple of days ago with worsening fatigue, generalized weakness, mouth/lip ulcers, eye pain, eye swelling and progressive weight loss. She had previously been on Valtrex and subsequently switched to acyclovir for presumed HSV. Recommended hospitalization for likely immunotherapy related mucositis.. Allergies Allergy/AdvReac Type Severity Reaction Status Date / Time latex Allergy Unknown rash Verified 10/31/22 09:16 acetaminophen [From Percocet] AdvReac Verified 10/31/22 09:16 oxycodone [From Percocet] AdvReac Verified 10/31/22 09:16 SULFA Allergy Unknown Uncoded 10/31/22 09:16 Home Medications Medication Instructions Recorded Confirmed Type albuterol sulfate 90 mcg/actuation 2 puff inhalation Q6H PRN 09/08/21 11/26/22 History aerosol inhaler Shortness Of Breath cholecalciferol (vitamin D3) 50 50 mcg PO DAILY 09/08/21 11/26/22 History mcg (2,000 unit) capsule lisinopril 40 mg tablet 40 mg PO DAILY 09/08/21 11/26/22 History multivit with 1 tab PO DAILY 09/08/21 11/26/22 History qoamjcyt-krvd-GK-lutein 8 mg iron-400 mcg-300 mcg tablet (Centrum Silver Women) pantoprazole 40 mg tablet,delayed 40 mg PO DAILY 01/12/22 11/26/22 History release (Protonix) aspirin 81 mg tablet,delayed 81 mg PO DAILY #30 tabs 04/25/22 11/26/22 Rx release calcium carbonate 500 mg-vitamin 1 tab PO DAILY #30 tabs 04/25/22 11/26/22 Rx D3 15 mcg (600 unit) tablet (Os-Drew 500 + D3) tramadol 50 mg tablet 50 mg PO Q4H PRN pain #30 tabs 06/12/22 11/26/22 Rx morphine 100 mg/5 mL oral 10 mg PO .Q4-6H PRN Pain 09/05/22 11/26/22 History concentrate prochlorperazine maleate 10 mg 10 mg PO Q6H PRN Nausea 09/05/22 11/26/22 History tablet (Compazine) levothyroxine 112 mcg tablet 112 mcg PO DAILY #90 tabs 09/17/22 11/26/22 Rx (Synthroid) fluticasone fur. 100 mcg-umeclid 1 inh inhalation DAILY #60 ea 10/08/22 11/26/22 Rx 62.5 mcg-vilant 25 mcg inhalat.powder (Trelegy Ellipta) compressor, for nebulizer #1 ea 11/12/22 11/12/22 Rx nebulizer accessories #2 ea 11/12/22 11/12/22 Rx ondansetron 8 mg disintegrating 8 mg PO Q8H #90 tabs 11/12/22 11/26/22 Rx tablet ipratropium 0.5 mg-albuterol 3 mg 3 ml inhalation Q4H PRN shortness 11/15/22 11/26/22 Rx (2.5 mg base)/3 mL nebulization of breath or wheezing #180 mL soln hydrocodone-homatropine 5 mg-1.5 5 ml PO Q6H PRN cough #200 mL 11/18/22 11/26/22 Rx mg/5 mL (5 mL) oral syrup (Hycodan) lidocaine HCl 2 % mucosal solution 2.5 ml mucous membrane BID PRN 11/18/22 11/26/22 Rx (Lidocaine Viscous) mouth pain #100 mL lorazepam 1 mg tablet 1 mg PO Q8H PRN Anxiety / insomnia 11/26/22 11/26/22 History Patient History Medical History Abnormal CT scan of lung Acid reflux Pace esophagus Brain metastases 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 Diverticulosis GROSS (dyspnea on exertion) Fibromyalgia Graves disease Hemoptysis Hiatal hernia Hypercholesteremia Hypertension IBS (irritable bowel syndrome) 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 Lung mass Malignant neoplasm of lower lobe, right bronchus or lung Mediastinal adenopathy Ovarian cyst Pulmonary nodule Recurrent urinary tract infection Thyroid disorder Surgical History H/O endoscopy H/O shoulder surgery Right shoulder - rotator cuff surgery H/O: hysterectomy History of cholecystectomy History of colonoscopy History of surgery Benign left breast removed at 13yo - benign per pt S/P bronchoscopy Family History Mother , 84yo Heart disease aortic aneurysm Cardiac stents Cancer Pt unsure of type Stroke Diabetes Aunt Cancer Lung cancer Uncle Cancer Father , 68yo Ruptured aortic aneurysm Hypertension Sister Aortic aneurysm Sister No problems noted. Brother No problems noted. Son No problems noted. Daughter No problems noted. Daughter History of brain surgery [place] [facility] [place] Social History Smoking Status: Former smoker Age Started Using Tobacco: 13; Age Quit Using Tobacco: 60; packs per day: 0.5; Cigarettes Per Day: 1/2 PPD x 25yrs; Second Hand Exposure: Yes; Do You Dip or Chew Tobacco: No; Hx Alcohol Use: No Hx Substance Use: No Preferred Language: Burkinan Communication Ability: Effective Visual Impairment: No Limitations Hearing Ability: Normal Resin Maker Required: No Beliefs That Will Affect Care: None marital status: Current Living Situation: Family current occupational status: retired How many Children do You have: 3 Feels Safe at Home: Yes Childhood Exposure to Second-Hand Smoke: Yes Diet: regular caffeine: Yes (2 cups/day) during the past year weight has: remained stable Dental Care, Regularly: Yes Physical Activity Frequency: Daily Seatbelt Use: always Sunscreen Use: Yes Assistive Devices: None Results & Data Vital Signs (Past 12 Hours) Vital Signs Temp Pulse Resp BP Pulse Ox O2 Del Method 11/27/22 20:30 Room Air 11/27/22 20:36 36.6 C 73 18 112/76 95 Room Air
[2022-11-28 07:48] LABS: Albumin Globulin Ratio 0.9 (0.9-2); Albumin Level 2.9 gm/dl (3.4-5.0); BUN Creatinine Ratio 8.3 (10-20); Bilirubin,Total 0.4 mg/dl (0.2-1.0); Calcium 8.4 mg/dl (8.6-10.3); Creatinine Clr Calc Pharmacy 85.2 ml/min; Est GFR (African American) 111.6 ml/min; Est GFR (Non-African American) 96.3 ml/min; Globulin 3.3 gm/dl (2.5-4.0); Magnesium 1.7 mg/dl (1.7-2.4); Phosphorus 3.7 mg/dl (2.5-4.9); Potassium 3.6 mmol/L (3.5-5.1); Total Protein 6.2 gm/dl (6.0-8.3)
--- NOTE | 2022-11-28 08:34 | Gastroenterology Progress Note ---
Supervising physicians note Case discussed with Sally Bernabe NP, records reviewed, patient and family seen Continues with oropharyngeal issues. ENT consult pending. No recs until we see what ENT finds. I believe most of her troubles are proximal to the cricopharyngeus I have spent 15 minutes on this case with discussion with Sally Bernabe, record review, discussion with patient and family and entering note into EMR Nevaeh Oneal Jr, MD, FACG Date of Service November 28, 2022 Assessment & Plan (1) Dysphagia: Plan: Dysphagia: Pleasant woman with dysphagia. It seems that most of her troubles are oropharyngeal and not esophageal, recommend ENT/oral surgery consultation which is pending for today. Will continue to follow. Case reviewed with Dr. Oneal. Please refer to supervising physician addendum for further recommendations. I have spent 15 minutes of discrete time performing the activities of this visit which include but are not limited to review of the medical record, obtaining a history, physical exam, and entering information in the electronic record. Admission and Anticipated Discharge Date Admission Date: November 26, 2022 Subjective Patient awake, alert, and oriented. Sitting in position of comfort on the side of her bed eating breakfast. States she is able to tolerate the liquids and creamed foods on her tray without difficulty swallowing. Denies abdominal pain, nausea, vomiting, bowel movement difficulty. States magic mouthwash is helpful. Review of Systems Review of Systems: All systems reviewed & are unremarkable except as noted in Subjective Physical Exam Constitutional: WD/WN, vitals as above no acute distress ENMT: external ear and nose normal, oropharynx normal Mouth: + lip abnormality (numerous blisters) Gastrointestinal (Abdomen): normal bowel sounds, soft, nontender, no hepatosplenomegaly Results & Data Vital Signs (Past 12 Hours) Vital Signs Temp Pulse Resp BP Pulse Ox O2 Del Method 11/28/22 08:01 37.1 C 79 18 108/73 95 Room Air 11/28/22 07:47 Room Air 11/27/22 20:36 36.6 C 73 18 112/76 95 Room Air Laboratory Results Laboratory Results - last 24 hr 11/28/22 11/28/22 06:56 06:56 WBC 7.92 RBC 3.98 L Hgb 11.8 L Hct 36.4 L MCV 91.5 MCH 29.6 MCHC 32.4 RDW Std Deviation 50.3 H RDW Coeff of Timbo 15.1 H Plt Count 409 H MPV 9.3 L Immature Gran % (Auto) 0.4 Neut % (Auto) 80.0 Lymph % (Auto) 13.3 Whitfield % (Auto) 4.3 Eos % (Auto) 1.6 Baso % (Auto) 0.4 Neut # (Auto) 6.34 Lymph # (Auto) 1.05 L Whitfield # (Auto) 0.34 Eos # (Auto) 0.13 Baso # (Auto) 0.03 Immature Gran # (Auto) 0.03 Sodium 137 Potassium 3.6 Chloride 102 Carbon Dioxide 31 Anion Gap 4 BUN 5 L Creatinine 0.60 Est Cr Clr Drug Dosing 85.2 Est GFR ( Amer) 111.6 Est GFR (Non-Af Amer) 96.3 BUN/Creatinine Ratio 8.3 L Glucose 78 Calcium 8.4 L Phosphorus 3.7 Magnesium 1.7 Total Bilirubin 0.4 AST 13 ALT 4 L Alkaline Phosphatase 53 Total Protein 6.2 Albumin 2.9 L Globulin 3.3 Albumin/Globulin Ratio 0.9
[2022-11-28] MEDS: CHOLECALCIFEROL 1,000 UNITS 25 MCG TAB PO SCH (09:09)
[2022-11-28] MEDS: PANTOprazole 40 MG in SYRINGE 0 ML IV SCH (11:29)
--- NOTE | 2022-11-28 13:47 | Hospitalist Progress Note ---
Date of Service November 28, 2022 Assessment & Plan (1) Mouth ulcers: Plan: 62 yo female with pmh of metastatic pleomorphic carcinoma of the lung, s/p radiation and immunotherapy treatment, presenting with 6 weeks mouth sores, lip ulcers, and increased mucus production. Suspected mucositis secondary to Keytruda treatment. #Mucositis Combined with uveitis, high suspicion for immunotherapy induced reaction. With odynophagia and history of oral thrush, no improvement on Valtrex or acyclovir; thrush HSV less likely Mucositis vs Thrush, Treated with nystatin with minimal improvement - Starting 140 mg methylprednisone - Vaseline for lips at evening - GI Consult: [place] that the this was more oropharyngeal vs esophageal. - Consulting ENT for insight regarding the clinical assessment. - Magic mouth wash for pain (2) Bilateral conjunctivitis: Plan: Has had inflammatory reactions to Keytruda treatment previous (colitis, pneumonitis). Has now developed eye pain, discharge and erythematous, Conjunctivitis vs. uveitis No ongoing discharge to suggest bacterial etiology - Biofire PCR order (3) Lung cancer: Plan: Prior treatment with Keytruda and radiation - IV morphine, oral morphine causing her lip swelling to be worse - Continue lorazepam to help with anxiety and sleep - Continue cough syrup to help with this (4) Electrolyte abnormality: Plan: - Magnesium and potassium supplementation IV (5) Hypertension: Plan: - Discontinue lisinopril as possible angioedema and suspect she does not need this for her BP with recent weight loss Plan VTE Prophyalxis - Lovenox Diet - regular minced and moist, NPO after midnight Disposition - med/surg Admission and Anticipated Discharge Date Admission Date: November 26, 2022 Supervising Physician Co-Signing Physician Notes I personally examined the patient and verified all rasheed points of history and exam, discussed case, and agree with decision making with Doni Mckeon MS4 and Dr Moss Discussed with hematology/oncologyinput greatly appreciated. Rheumatology reach out to me on chart review and noted that they did not see anything that appeared rheumatologic, it appeared Keytruda related to themwere happy to see the patient if I felt they would be of value, but after discussion, consult canceled. Updated patient and family. Steroids started. Vitals noted, in general she is fatigued, her lips are cracked and desquamated in places, her eyes show conjunctival injection and lid swelling as well is thin exudate. Breathing unlabored no accessory muscle use, no focal neurodeficits. Failure to thrive --> I most strongly suspect her lip mouth and I issues relate to Keytruda. Start corticosteroids, follow for response --->malnutrition is definitely a big isssue as well - will need to get mouth/li ps feeling better but then will want to talk at length about nutritional goals and how to attain them (will work from a calorie goal approach). Consult dietitian for additional education from a more expert position -->lung cancer - pt/family are realistic about her prognosis, "this might be her last summer" "i just want quality of life with what i have left" - but certainly seems that med ADRs and malnutrition might be a bigger player in acute decline than cancer at this time Subjective No acute events overnight. Today, she is feeling about the same. Her lips are very sore and anneal together during sleep, causing pain upon opening in the morning. She continues to struggle to eat but does say that she could tolerate liquids today. She was experiencing some chest pain at the location of her tumor last night and received morphine for pain. Review of Systems Constitutional: Denied fever, night sweats, fatigue, weakness, dizziness Respiratory: Denied cough or shortness of breath. Cardiovascular: Additional Comments: Endorsed chest pain. Gastrointestinal: Denied nausea, vomiting, diarrhea, abdominal pain. Physical Exam Constitutional: Alert and oriented x3 in hopsital bed Eyes: Pupils were equal, normal shape, and reactive. Conjunctiva injected. Thin film. Neck: Respiratory: CTA, no increased work of breathing Cardiovascular: Normal rate and regular rhythmn. S1 S2. Radial pulses equal b/l. Capillary refill less than 2 sec. Gastrointestinal (Abdomen): Nondistended, nontender, normoactive bowel sounds. Musculoskeletal: Moves all extremities independently. Skin: Warm dry, no apparent rashes. Psychiatric: Appropriate mood and affect. Lymphatic: No lymphadenopathy in the neck and cervical region. Results & Data Results & Data Vital Signs (Past 12 Hours) Vital Signs Temp Pulse Resp BP Pulse Ox O2 Del Method 11/28/22 08:01 37.1 C 79 18 108/73 95 Room Air 11/28/22 07:47 Room Air
[2022-11-28] MEDS: ENOXAPARIN INJ 40 MG/0.4 ML SYR SQ SCH (15:47)
[2022-11-28] MEDS: methylPREDNISolone 40 MG in SYRINGE 0 ML IV SCH ×2 (15:47→20:22)
[2022-11-28] MEDS: LORazepam 1 MG TAB PO PRN (17:32)
--- NOTE | 2022-11-28 18:34 | Billing Data ---
Date of Service November 28, 2022 Coding Level of Care Code 26810 SUB INP/OBS CARE MIN
--- NOTE | 2022-11-28 18:35 | Billing Data ---
Date of Service November 28, 2022 Coding Level of Care Code 90281 SUB INP/OBS CARE MIN
[2022-11-29] MEDS: LACTATED RINGER'S 1,000 ML IV SCH (03:14)
[2022-11-29] MEDS: LEVOTHYROXINE SODIUM 112 MCG TABLET PO SCH (06:12)
[2022-11-29] MEDS: FIRST - Mouthwash BLM 119 ML PO PRN ×2 (06:13→18:47)
[2022-11-29 07:53] LABS: Basophils # (auto) 0.01 K/uL (0-0.2); Basophils % (auto) 0.1 %; Hematocrit (blood only) 31.4 % (37.0-47.0); Hemoglobin 10.5 g/dl (12.0-16.0); Immature Granulocytes # (auto) 0.03 K/uL (0.01-0.20); Immature Granulocytes % (auto) 0.4 %; Lymphocytes # (auto) 0.98 K/uL (1.2-3.4); Lymphocytes % (auto) 14.5 %; Mean Corpuscular Hemoglobin 29.9 pg (25.0-34.0); Mean Corpuscular Hgb Conc 33.4 g/dL (32.0-36.0); Mean Corpuscular Volume 89.5 fL (80.0-100.0); Mean Platelet Volume 9.6 fL (9.4-12.4); Neutrophils # (auto) 5.52 K/uL (1.40-6.50); Platelet Count 386 K/uL (130-400); RDW Coefficient of Variation 14.9 % (11.5-14.5); RDW Standard Deviation 48.4 fL (36.4-46.3); Red Blood Count 3.51 M/uL (4.20-5.40); White Blood Count 6.74 K/ul (4.8-10.8)
[2022-11-29 08:17] LABS: BUN Creatinine Ratio 17.4 (10-20); Calcium 8.5 mg/dl (8.6-10.3); Creatinine Clr Calc Pharmacy 111.2 ml/min; Est GFR (African American) 121.8 ml/min; Est GFR (Non-African American) 105.1 ml/min; Magnesium 1.6 mg/dl (1.7-2.4); Potassium 3.9 mmol/L (3.5-5.1)
[2022-11-29] MEDS: CHOLECALCIFEROL 1,000 UNITS 25 MCG TAB PO SCH (09:26)
[2022-11-29] MEDS: methylPREDNISolone 40 MG in SYRINGE 0 ML IV SCH ×3 (09:26→20:40)
[2022-11-29] MEDS: CEROVITE ADV FORMULA TAB PO SCH (09:29)
[2022-11-29] MEDS: MAGNESIUM SULFATE / D5W 1 GM/100 ML BAG IV SCH ×2 (09:30→11:35)
[2022-11-29] MEDS: PANTOprazole 40 MG in SYRINGE 0 ML IV SCH (11:34)
--- NOTE | 2022-11-29 13:42 | Hospitalist Progress Note ---
Date of Service November 29, 2022 Assessment & Plan (1) Mouth ulcers: Plan: 62 yo female with pmh of metastatic pleomorphic carcinoma of the lung, s/p radiation and immunotherapy treatment, presenting with 6 weeks mucositis secondary to Keytruda treatment. #Mucositis Going forwards as immunotherapy reaction mucositis. Today, she feels the same. With odynophagia and history of oral thrush, no improvement on Valtrex or acyclovir; thrush HSV less likely Mucositis vs Thrush, Treated with nystatin with minimal improvement - 40 mg IV TID methylprednisone - Vaseline for lips at evening - GI Consult: [place] that the this was more oropharyngeal vs esophageal. - ENT: Supports Keytruda reaction etiology. - Magic mouth wash for pain (2) Bilateral conjunctivitis: Plan: #Immunotherapy reaction Has had inflammatory reactions to Keytruda treatment previous (colitis, pneumonitis). Has now developed eye pain, discharge and erythematous, Conjunctivitis vs. uveitis - Biofire PCR order (3) Malnutrition: Plan: Secondary to mouth sores and pain while eating. - Met with nutrition. - Motivated to increase eating, has appetite. - Discussed future diet plan and goals. (4) Lung cancer: Plan: Prior treatment with Keytruda and radiation - IV morphine, oral morphine causing her lip swelling to be worse - Continue lorazepam to help with anxiety and sleep - Continue cough syrup to help with this (5) Electrolyte abnormality: Plan: - Magnesium and potassium supplementation IV (6) Hypertension: Plan: - Discontinue lisinopril as possible angioedema and suspect she does not need this for her BP with recent weight loss Plan VTE Prophyalxis - Lovenox Diet - regular minced and moist Disposition - med/surg Admission and Anticipated Discharge Date Admission Date: November 26, 2022 Supervising Physician Co-Signing Physician Notes I personally examined the patient and verified all rasheed points of history and exam, discussed case, and agree with decision making with Doni Mckeon MS4 and Dr Moss eyes and lips less red and painful. Extensive discussion on nutrition with patient and family, daughter arrived right after discussions, so reiterated for her. Vitals noted, in general she is fatigued, her lips are healing over, peeling some, but appearing to have some healthy tissue underneath, her eyes show much improvedconjunctival injection and lid swelling. Breathing unlabored no accessory muscle use, no focal neurodeficits. Failure to thrive --> I most strongly suspect her lip mouth and I issues relate to Keytruda. improving on steroid --->malnutrition is definitely a big issue as well - extensive discussions today on how to meet calorie goals and the critical necessity of doing so. She/family all expressed good understanding. -->lung cancer - pt/family are realistic about her prognosis, "this might be her last summer" "i just want quality of life with what i have left" - but certainly seems that med ADRs and malnutrition might be a bigger player in acute decline than cancer at this time Subjective No acute events overnight. Maybe her eyes are feeling less dry/painful today. Review of Systems Constitutional: Denied fever, night sweats, fatigue, weakness, dizziness Respiratory: Denied cough or shortness of breath. Cardiovascular: Additional Comments: Denied chest pain, palpitations Gastrointestinal: Denied nausea, vomiting, diarrhea, abdominal pain. Neurologic: Denied weaknesss, numbness, or tingling. Physical Exam Constitutional: Alert and oriented x3 in hopsital bed Eyes: Pupils were equal, normal shape, and reactive. Conjunctiva injected. ENMT: Mouth has crusted wounds. Some open wounds in the inner portion of the lips. Neck: Respiratory: CTA, no increased work of breathing. Cardiovascular: Normal rate and regular rhythmn. S1 S2. No r/m/g. Radial pulses equal b/l. Capillary refill less than 2 sec. Gastrointestinal (Abdomen): Nondistended, nontender, normoactive bowel sounds. Musculoskeletal: Upper extremity 5/5 strength Lower extremity 5/5 strength Skin: Warm dry, no apparent rashed. Psychiatric: Appropriate mood and affect. Lymphatic: No lymphadenopathy in the neck and cervical region. Results & Data Results & Data Vital Signs (Past 12 Hours) Vital Signs Temp Pulse Resp BP Pulse Ox O2 Del Method 11/29/22 10:12 Room Air 11/29/22 08:37 36.8 C 69 18 114/73 95 Room Air
[2022-11-29] MEDS: ENOXAPARIN INJ 40 MG/0.4 ML SYR SQ SCH (15:47)
--- NOTE | 2022-11-29 16:35 | Progress Note ---
Date of Service November 29, 2022 Assessment & Plan (1) Mucositis: (2) Mouth ulcers: (3) Malnutrition: (4) Lung cancer: Plan Patient with Grade 3/4 immunotherapy induced mucositis and possible uveitis. Started on methylprednisolone 2 mg/kg/day yesterday with clinical improvement noted today -Continue current treatment with IV steroids Admission and Anticipated Discharge Date Admission Date: November 26, 2022 Subjective Clinically improved with initiation of IV methylprednisolone yesterday. Improvement noted in lip/mouth ulcers as well as conjunctival erythema. Results & Data Vital Signs (Past 12 Hours) Vital Signs Temp Pulse Resp BP Pulse Ox O2 Del Method 11/29/22 10:12 Room Air 11/29/22 08:37 36.8 C 69 18 114/73 95 Room Air
[2022-11-29] MEDS: LORazepam 1 MG TAB PO PRN (18:49)
--- NOTE | 2022-11-29 19:00 | Billing Data ---
Date of Service November 29, 2022 Coding Level of Care Code 48487 SUB INP/OBS CARE MIN
[2022-11-29] MEDS: MoRPHine SULFATE 4 MG/ML 1 ML CARP\\VIAL IV PRN (21:43)
[2022-11-30] MEDS: MoRPHine SULFATE 4 MG/ML 1 ML CARP\\VIAL IV PRN (03:38)
[2022-11-30] MEDS: LEVOTHYROXINE SODIUM 112 MCG TABLET PO SCH (05:32)
[2022-11-30 06:27] LABS: Basophils # (auto) 0.02 K/uL (0-0.2); Basophils % (auto) 0.3 %; Hematocrit (blood only) 31.4 % (37.0-47.0); Hemoglobin 10.3 g/dl (12.0-16.0); Immature Granulocytes # (auto) 0.06 K/uL (0.01-0.20); Immature Granulocytes % (auto) 0.8 %; Lymphocytes # (auto) 1.17 K/uL (1.2-3.4); Mean Corpuscular Hgb Conc 32.8 g/dL (32.0-36.0); Mean Corpuscular Volume 91.5 fL (80.0-100.0); Mean Platelet Volume 9.6 fL (9.4-12.4); Monocytes % (auto) 3.8 %; Neutrophils # (auto) 6.27 K/uL (1.40-6.50); Neutrophils % (auto) 80.1 %; Platelet Count 397 K/uL (130-400); RDW Coefficient of Variation 15.1 % (11.5-14.5); RDW Standard Deviation 50.5 fL (36.4-46.3); Red Blood Count 3.43 M/uL (4.20-5.40); White Blood Count 7.82 K/ul (4.8-10.8)
[2022-11-30 06:34] LABS: BUN Creatinine Ratio 20.4 (10-20); Calcium 8.2 mg/dl (8.6-10.3); Creatinine Clr Calc Pharmacy 94.7 ml/min; Est GFR (African American) 115.6 ml/min; Est GFR (Non-African American) 99.7 ml/min; Magnesium 1.8 mg/dl (1.7-2.4); Potassium 4.2 mmol/L (3.5-5.1)
[2022-11-30] MEDS: FIRST - Mouthwash BLM 119 ML PO PRN (07:41)
[2022-11-30] MEDS: CEROVITE ADV FORMULA TAB PO SCH (09:03)
[2022-11-30] MEDS: CHOLECALCIFEROL 1,000 UNITS 25 MCG TAB PO SCH (09:03)
[2022-11-30] MEDS: methylPREDNISolone 40 MG in SYRINGE 0 ML IV SCH ×3 (09:03→20:32)
[2022-11-30] MEDS: FIRST - Mouthwash BLM 119 ML PO SCH ×3 (09:04→20:32)
[2022-11-30] MEDS: PANTOprazole 40 MG in SYRINGE 0 ML IV SCH (11:22)
[2022-11-30] MEDS: ENOXAPARIN INJ 40 MG/0.4 ML SYR SQ SCH (15:35)
--- NOTE | 2022-11-30 15:53 | Hospitalist Progress Note ---
Date of Service November 30, 2022 Assessment & Plan (1) Mouth ulcers: Plan: 62 yo female with pmh of metastatic pleomorphic carcinoma of the lung, s/p radiation and immunotherapy treatment, presenting with 6 weeks mucositis secondary to Keytruda treatment. #Mucositis Improving with steroid treatment. - 40 mg IV TID methylprednisone - Vaseline for lips at evening - ENT: Supports Keytruda reaction etiology. - Magic mouth wash for pain (2) Bilateral conjunctivitis: Plan: #Immunotherapy reaction Has had inflammatory reactions to Keytruda treatment previous (colitis, pneumonitis). Has now developed eye pain, discharge and erythematous, Conjunctivitis vs. uveitis See above (3) Malnutrition: Plan: Secondary to mouth sores and pain while eating. - Motivated to increase eating, has appetite. - Discussed future diet plan and goals - Going to start practicing calorie counting tomorrow. (4) Lung cancer: Plan: Prior treatment with Keytruda and radiation - PRN IV morphine, oral morphine causing her lip swelling to be worse - Continue lorazepam to help with anxiety and sleep - Continue cough syrup to help with this (5) Electrolyte abnormality: Plan: - Magnesium and potassium supplementation IV (6) Hypertension: Plan: - Discontinue lisinopril as possible angioedema and suspect she does not need this for her BP with recent weight loss Plan VTE Prophyalxis - Lovenox Diet - regular minced and moist Disposition - med/surg Admission and Anticipated Discharge Date Admission Date: November 26, 2022 Supervising Physician Co-Signing Physician Notes I personally examined the patient and verified all rasheed points of history and exam, discussed case, and agree with decision making with Doni Mckeon MS4 and Dr Moss eyes and lips improving. eating improving Vitals noted, in general she is far less fatigued, walking around in the room, more animated, her lips are healing over, peeling less, her eyes show much improved conjunctival injection and lid swelling (asymmetric, but improving). Breathing unlabored no accessory muscle use, no focal neurodeficits. Failure to thrive --> I most strongly suspect her lip mouth and I issues relate to Keytruda. improving on steroid - continue --->severe protein/calorie malnutrition is definitely a big issue as well - extensive discussions 11/29 on how to meet calorie goals and the critical necessity of doing so. She/family all expressed good understanding. -->lung cancer - pt/family are realistic about her prognosis, "this might be her last summer" "i just want quality of life with what i have left" - but certainly seems that med ADRs and malnutrition might be a bigger player in acute decline than cancer at this time hopefully home soon Subjective No acute events overnight Today, similar chest pain over area of the tumor. Denied palpitations or SOB. [place] the mouth sores were improving. Wanted to be be progressed to full diet. Review of Systems Constitutional: Denied fever, night sweats, fatigue, weakness, dizziness Eyes: Denied blurry vision Respiratory: Denied cough or shortness of breath. Cardiovascular: Additional Comments: Denied palpitations Endorsed chest pain. Gastrointestinal: Denied nausea, vomiting, diarrhea, abdominal pain. Physical Exam Constitutional: Alert and oriented x3 in hopsital bed Eyes: Pupils were equal, normal shape, and reactive. Neck: Respiratory: CTA, no increased work of breathing Cardiovascular: Normal rate and regular rhythm. S1 S2 no r/m/g. Radial pulses equal b/l. Capillary refill less than 2 sec. Gastrointestinal (Abdomen): Nondistended, nontender, normoactive bowel sounds. Musculoskeletal: Moves all extremities independently. Skin: Warm dry, no apparent rashed. Psychiatric: Appropriate mood and affect. Lymphatic: No lymphadenopathy in the neck and cervical region. Results & Data Results & Data Vital Signs (Past 12 Hours) Vital Signs Temp Pulse Resp BP Pulse Ox O2 Del Method 11/30/22 14:27 36.5 C 70 18 124/82 97 Room Air 11/30/22 07:25 Room Air 11/30/22 07:36 36.5 C 63 16 108/69 95 Room Air
--- NOTE | 2022-11-30 18:59 | Billing Data ---
Date of Service November 30, 2022 Coding Level of Care Code 64833 SUB INP/OBS CARE
[2022-11-30] MEDS: LORazepam 1 MG TAB PO PRN (19:33)
[2022-12-01] MEDS: LORazepam 1 MG TAB PO PRN ×2 (04:39→22:24)
[2022-12-01] MEDS: LEVOTHYROXINE SODIUM 112 MCG TABLET PO SCH (05:41)
--- NOTE | 2022-12-01 06:53 | Hematology/Oncology Prog Note ---
Date of Service December 01, 2022 Assessment & Plan (1) Mucositis: (2) Fibromyalgia: (3) Malignant neoplasm of lower lobe, right bronchus or lung: Plan -Would recommend switching to prednisone 1mg/kg/day once pain has resolved and she is able to tolerate full diet in anticipation of discharge. Will need to continue PPI while on high dose steroids -Follow up with Dr Jesus on discharge for continued oncologic care as well as to initiate steroid taper Admission and Anticipated Discharge Date Admission Date: November 26, 2022 Subjective Patient not seen today but continues to improve since i saw her on and has now been advanced to full diet. Results & Data Vital Signs (Past 12 Hours) Vital Signs Temp Pulse Resp BP Pulse Ox O2 Del Method 11/30/22 22:25 36.3 C L 65 16 113/67 97 Room Air 11/30/22 20:36 Room Air
[2022-12-01 08:09] LABS: Basophils # (auto) 0.01 K/uL (0-0.2); Basophils % (auto) 0.2 %; Hematocrit (blood only) 31.8 % (37.0-47.0); Hemoglobin 10.5 g/dl (12.0-16.0); Immature Granulocytes # (auto) 0.16 K/uL (0.01-0.20); Immature Granulocytes % (auto) 2.6 %; Lymphocytes # (auto) 1.14 K/uL (1.2-3.4); Lymphocytes % (auto) 18.5 %; Mean Corpuscular Hemoglobin 29.8 pg (25.0-34.0); Mean Corpuscular Volume 90.3 fL (80.0-100.0); Mean Platelet Volume 9.4 fL (9.4-12.4); Monocytes # (auto) 0.45 K/uL (0.11-0.59); Monocytes % (auto) 7.3 %; Neutrophils # (auto) 4.39 K/uL (1.40-6.50); Neutrophils % (auto) 71.4 %; Platelet Count 417 K/uL (130-400); RDW Coefficient of Variation 15.3 % (11.5-14.5); RDW Standard Deviation 50.1 fL (36.4-46.3); Red Blood Count 3.52 M/uL (4.20-5.40); White Blood Count 6.15 K/ul (4.8-10.8)
[2022-12-01 08:24] LABS: BUN Creatinine Ratio 22.4 (10-20); Calcium 8.3 mg/dl (8.6-10.3); Creatinine Clr Calc Pharmacy 88.2 ml/min; Est GFR (African American) 112.9 ml/min; Est GFR (Non-African American) 97.4 ml/min; Magnesium 1.7 mg/dl (1.7-2.4)
[2022-12-01] MEDS: CHOLECALCIFEROL 1,000 UNITS 25 MCG TAB PO SCH (08:38)
[2022-12-01] MEDS: CEROVITE ADV FORMULA TAB PO SCH (08:38)
[2022-12-01] MEDS: FIRST - Mouthwash BLM 119 ML PO SCH ×3 (08:39→20:08)
[2022-12-01] MEDS: methylPREDNISolone 40 MG in SYRINGE 0 ML IV SCH ×3 (08:39→20:08)
--- NOTE | 2022-12-01 10:06 | Hospitalist Progress Note ---
Date of Service December 01, 2022 Assessment & Plan (1) Mouth ulcers: Plan: 62 yo female with pmh of metastatic pleomorphic carcinoma of the lung, s/p radiation and immunotherapy treatment, presenting with 6 weeks mucositis secondary to Keytruda treatment. #Mucositis Improving with steroid treatment. - 40 mg IV TID methylprednisone - Vaseline for lips at evening - ENT: Supports Keytruda reaction etiology. - Magic mouth wash for pain - Will check ferritin, B12 - Add Biotene (2) Bilateral conjunctivitis: Plan: #Immunotherapy reaction Has had inflammatory reactions to Keytruda treatment previous (colitis, pneumonitis). Has now developed eye pain, discharge and erythematous, Conjunctivitis vs. uveitis See above (3) Malnutrition: Plan: Secondary to mouth sores and pain while eating. - Motivated to increase eating, has appetite. - Discussed future diet plan and goals - Going to start practicing calorie counting (4) Lung cancer: Plan: Prior treatment with Keytruda and radiation - PRN IV morphine, oral morphine causing her lip swelling to be worse - Continue lorazepam to help with anxiety and sleep - Continue cough syrup to help with this (5) Electrolyte abnormality: Plan: - Magnesium and potassium supplementation IV (6) Hypertension: Plan: - Discontinue lisinopril as possible angioedema and suspect she does not need this for her BP with recent weight loss Plan VTE Prophyalxis - Lovenox Diet - regular Disposition - med/surg Admission and Anticipated Discharge Date Admission Date: November 26, 2022 Supervising Physician Co-Signing Physician Notes I personally examined the patient and verified all rasheed points of history and exam, discussed case, and agree with decision making with Dr Moss eyes and lips improving. eating improving. mouth about the same - she's not sure if it's because it's not getting better or if it's because she's eating more Vitals noted, in general aao pleasant nad heent nc at mmm lips healing, eyes far less injected mouth still fairly beefy red tongue no ulcers/plaques. Failure to thrive --> I most strongly suspect her lip mouth and I issues relate to Keytruda. improving on steroid - continue - hopefully transition to PO prednisone/home soon. ---> mouth soreness lagging behind - d/w pt is difficult to tell if she feels the same because she's eating more vs mouth lagging behind - suspect will get better with time/steroids but add biotine, check b12, iron --->severe protein/calorie malnutrition is definitely a big issue as well - extensive discussions 11/29 on how to meet calorie goals and the critical necessity of doing so. She/family all expressed good understanding. -->lung cancer - pt/family are realistic about her prognosis, "this might be her last summer" "i just want quality of life with what i have left" - but certainly seems that med ADRs and malnutrition might be a bigger player in acute decline than cancer at this time hopefully home soon Subjective Pain in mouth similar to yesterday. States it's worse over night and as the day goes on improves. Had trouble sleeping last night secondary to the pain. Was able to eat a decent amount yesterday. Eyes continue to improve. Review of Systems Review of Systems: As per above Physical Exam Physical Exam: Constitutional: well-appearing, no acute distress HEENT: NCAT, no conjunctival injection CV: extremities well-perfused, no LE edema Resp: no increased work of breathing MSK: no gross deformities appreciated Skin: warm, dry, no rash appreciated Neuro: alert, oriented, no focal neurologic deficit appreciated Results & Data Results & Data Vital Signs (Past 12 Hours) Vital Signs Temp Pulse Resp BP Pulse Ox O2 Del Method 12/01/22 07:30 Room Air 12/01/22 07:31 36.5 C 59 L 16 130/68 96 Room Air 11/30/22 22:25 36.3 C L 65 16 113/67 97 Room Air Resident Activity Tracking Resident Involvement: Resident Care Provided Care Provided: Adult Hospital Medicine
[2022-12-01] MEDS: PANTOprazole 40 MG in SYRINGE 0 ML IV SCH (11:13)
[2022-12-01] MEDS: ENOXAPARIN INJ 40 MG/0.4 ML SYR SQ SCH (15:34)
--- NOTE | 2022-12-01 16:25 | Billing Data ---
Date of Service December 01, 2022 Coding Level of Care Code 74792 SUB INP/OBS CARE
[2022-12-01] MEDS: MoRPHine SULFATE 4 MG/ML 1 ML CARP\\VIAL IV PRN (20:08)
[2022-12-02] MEDS: methylPREDNISolone 40 MG in SYRINGE 0 ML IV SCH ×3 (02:00→20:02)
[2022-12-02] MEDS: LEVOTHYROXINE SODIUM 112 MCG TABLET PO SCH (06:04)
[2022-12-02 06:11] LABS: Basophils # (auto) 0.01 K/uL (0-0.2); Basophils % (auto) 0.1 %; Hematocrit (blood only) 32.1 % (37.0-47.0); Hemoglobin 10.5 g/dl (12.0-16.0); Immature Granulocytes # (auto) 0.05 K/uL (0.01-0.20); Immature Granulocytes % (auto) 0.5 %; Lymphocytes # (auto) 1.27 K/uL (1.2-3.4); Lymphocytes % (auto) 13.6 %; Mean Corpuscular Hemoglobin 29.7 pg (25.0-34.0); Mean Corpuscular Hgb Conc 32.7 g/dL (32.0-36.0); Mean Corpuscular Volume 90.7 fL (80.0-100.0); Mean Platelet Volume 9.2 fL (9.4-12.4); Monocytes % (auto) 3.2 %; Neutrophils # (auto) 7.69 K/uL (1.40-6.50); Neutrophils % (auto) 82.6 %; Platelet Count 404 K/uL (130-400); RDW Coefficient of Variation 15.5 % (11.5-14.5); RDW Standard Deviation 50.7 fL (36.4-46.3); Red Blood Count 3.54 M/uL (4.20-5.40); White Blood Count 9.32 K/ul (4.8-10.8)
[2022-12-02 06:24] LABS: BUN Creatinine Ratio 26.2 (10-20); Calcium 8.2 mg/dl (8.6-10.3); Creatinine Clr Calc Pharmacy 83.8 ml/min; Est GFR (Non-African American) 95.8 ml/min; Potassium 4.2 mmol/L (3.5-5.1)
[2022-12-02 06:41] LABS: Ferritin 224.2 ng/ml (8-388)
--- NOTE | 2022-12-02 07:11 | Hospitalist Progress Note ---
Date of Service December 02, 2022 Assessment & Plan (1) Mouth ulcers: Plan: 62 yo female with pmh of metastatic pleomorphic carcinoma of the lung, s/p radiation and immunotherapy treatment, presenting with 6 weeks mucositis secondary to Keytruda treatment. #Mucositis Improving with steroid treatment. - 40 mg IV TID methylprednisone - Vaseline for lips at evening - ENT: Supports Keytruda reaction etiology. - Magic mouth wash for pain - ferritin, B12 wnl - Add Biotene - Switch from Ativan to Klonopin. Some evidence that Klonopin could be used symptomatically in burning mouth syndrome. Although she does not have burning mouth syndrome, mechanism of pain would be similar. Since she is already chronically on Ativan, switching could help with anxiety and mouth pain. - Switch from morphine to po Dilaudid as trial of OP pain regimen. Was on liquid morphine prior to admission, which made her mouth symptoms worse. (2) Bilateral conjunctivitis: Plan: #Immunotherapy reaction Has had inflammatory reactions to Keytruda treatment previous (colitis, pneumonitis). Has now developed eye pain, discharge and erythematous, Conjunctivitis vs. uveitis See above (3) Malnutrition: Plan: Secondary to mouth sores and pain while eating. - Motivated to increase eating, has appetite. - Discussed future diet plan and goals - Going to start practicing calorie counting (4) Lung cancer: Plan: Prior treatment with Keytruda and radiation - PRN Dilaudid - Switch to Klonopin - Continue cough syrup to help with this (5) Electrolyte abnormality: Plan: - Hypomagnesium and hypokalemia- resolved (6) Hypertension: Plan: - Discontinue lisinopril as possible angioedema and suspect she does not need this for her BP with recent weight loss Plan VTE Prophyalxis - Lovenox Diet - regular Disposition - med/surg Admission and Anticipated Discharge Date Admission Date: November 26, 2022 Supervising Physician Co-Signing Physician Notes I personally examined the patient and verified all rasheed points of history and exam, discussed case, and agree with decision making with Dr Moss still slowly improving. not quite feeling up to going home yet. Vitals noted, in general aao pleasant nad heent nc at mmm lips healing, eyes far less injected mouth still fairly beefy red tongue no ulcers/plaques. Failure to thrive --> I most strongly suspect her lip mouth and I issues relate to Keytruda. improving on steroids - continue - hopefully transition to PO prednisone/home soon. ---> mouth soreness lagging behind - d/w pt is difficult to tell if she feels the same because she's eating more vs mouth lagging behind - suspect will get better with time/steroids (b12, iron OK) --->severe protein/calorie malnutrition is definitely a big issue as well - extensive discussions 11/29 on how to meet calorie goals and the critical necessity of doing so. She/family all expressed good understanding. -->lung cancer - pt/family are realistic about her prognosis, "this might be her last summer" "i just want quality of life with what i have left" - but certainly seems that med ADRs and malnutrition might be a bigger player in acute decline than cancer at this time hopefully home soon Subjective Still having burning mouth pain. Similar to yesterday. Worse with eating, although was able to tolerate good PO intake yesterday. Review of Systems Review of Systems: As per above Physical Exam Physical Exam: Constitutional: well-appearing, no acute distress HEENT: NCAT, no conjunctival injection CV: extremities well-perfused, no LE edema Resp: no increased work of breathing MSK: no gross deformities appreciated Skin: warm, dry, no rash appreciated Neuro: alert, oriented, no focal neurologic deficit appreciated Results & Data Results & Data Vital Signs (Past 12 Hours) Vital Signs Temp Pulse Resp BP Pulse Ox O2 Del Method 12/01/22 21:41 36.5 C 68 18 106/66 96 Room Air 12/01/22 20:03 Room Air Resident Activity Tracking Resident Involvement: Resident Care Provided Care Provided: Adult Hospital Medicine
[2022-12-02] MEDS ORDERED: POLYETHYLENE (MIRALAX) 17 GM PACK PO PRN (08:54)
[2022-12-02] MEDS: FIRST - Mouthwash BLM 119 ML PO SCH ×3 (09:18→20:02)
[2022-12-02] MEDS: CEROVITE ADV FORMULA TAB PO SCH (09:19)
[2022-12-02] MEDS: CHOLECALCIFEROL 1,000 UNITS 25 MCG TAB PO SCH (09:30)
[2022-12-02] MEDS: PANTOprazole 40 MG in SYRINGE 0 ML IV SCH (11:37)
[2022-12-02] MEDS ORDERED: clonazePAM 0.5 MG TAB PO PRN (13:50)
[2022-12-02] MEDS ORDERED: HYDROmorphone HCL 2 MG TAB PO PRN (13:54)
[2022-12-02] MEDS: ENOXAPARIN INJ 40 MG/0.4 ML SYR SQ SCH (15:22)
--- NOTE | 2022-12-02 16:58 | Billing Data ---
Date of Service December 02, 2022 Coding Level of Care Code [id number] SUB INP/OBS CARE
[2022-12-03] MEDS: LEVOTHYROXINE SODIUM 112 MCG TABLET PO SCH (05:57)
[2022-12-03 07:23] LABS: Basophils # (auto) 0.01 K/uL (0-0.2); Basophils % (auto) 0.1 %; Hematocrit (blood only) 31.7 % (37.0-47.0); Hemoglobin 10.7 g/dl (12.0-16.0); Immature Granulocytes # (auto) 0.06 K/uL (0.01-0.20); Immature Granulocytes % (auto) 0.8 %; Lymphocytes % (auto) 14.6 %; Mean Corpuscular Hemoglobin 30.7 pg (25.0-34.0); Mean Corpuscular Hgb Conc 33.8 g/dL (32.0-36.0); Mean Corpuscular Volume 90.8 fL (80.0-100.0); Mean Platelet Volume 8.8 fL (9.4-12.4); Monocytes # (auto) 0.37 K/uL (0.11-0.59); Monocytes % (auto) 4.9 %; Neutrophils # (auto) 5.98 K/uL (1.40-6.50); Neutrophils % (auto) 79.6 %; Platelet Count 426 K/uL (130-400); RDW Coefficient of Variation 15.8 % (11.5-14.5); RDW Standard Deviation 51.8 fL (36.4-46.3); Red Blood Count 3.49 M/uL (4.20-5.40); White Blood Count 7.52 K/ul (4.8-10.8)
--- NOTE | 2022-12-03 07:24 | Hospitalist Progress Note ---
Date of Service December 03, 2022 Assessment & Plan (1) Mouth ulcers: Plan: 62 yowith pmh of metastatic pleomorphic carcinoma of the lung, s/p radiation and immunotherapy treatment, presenting with 6 weeks mucositis secondary to Keytruda treatment. Mucositis Improving with steroid treatment. - 40 mg IV TID methylprednisone - Vaseline for lips at evening - ENT: Supports Keytruda reaction etiology. - Magic mouth wash for pain - ferritin, B12 wnl - Add Biotene - Switch from Ativan to Klonopin. Some evidence that Klonopin could be used symptomatically in burning mouth syndrome. Although she does not have burning mouth syndrome, mechanism of pain would be similar. Since she is already chronically on Ativan, switching could help with anxiety and mouth pain. - Switch from morphine to po Dilaudid as trial of OP pain regimen. Was on liquid morphine prior to admission, which made her mouth symptoms worse. Immunotherapy reaction Has had inflammatory reactions to Keytruda treatment previous (colitis, pneumonitis). Has now developed eye pain, discharge and erythematous, Conjunctivitis vs. uveitis See above Malnutrition Secondary to mouth sores and pain while eating. - Motivated to increase eating, has appetite. - Discussed future diet plan and goals - Going to start practicing calorie counting Lung cancer Prior treatment with Keytruda and radiation - PRN Dilaudid - Switch to Klonopin - Continue cough syrup to help with this Hypertension - Discontinue lisinopril as possible angioedema and suspect she does not need this for her BP with recent weight loss Code: [Full code][DNR/DNI][Conditional code] Dispo: Med-Surg [telemetry][PCU][ICU] FEN/GI: [NPO.][NS @maintenance rate][LR @maintenance rate][Heart healthy][Carb consistent] DVT Prophylaxis: [Lovenox 40 mg q24h][Heparin 5000 u q12h] PT/OT: [Yes][No] Consults: [None] Case Management: [Yes][No] (2) Bilateral conjunctivitis: (3) Malnutrition: (4) Lung cancer: (5) Electrolyte abnormality: (6) Hypertension: Admission and Anticipated Discharge Date Admission Date: November 26, 2022 Review of Systems Review of Systems: All systems reviewed & are unremarkable except as noted in HPI & below Results & Data Results & Data Vital Signs (Past 12 Hours) Vital Signs Temp Pulse Resp BP Pulse Ox O2 Del Method 12/02/22 21:41 36.3 C L 58 L 18 137/84 97 Room Air 12/02/22 19:35 Room Air
[2022-12-03 07:41] VITALS: BP 136/80; PULSE 61; TEMP 97.9; O2SAT 99
[2022-12-03 07:43] LABS: BUN Creatinine Ratio 31.9 (10-20); Calcium 8.4 mg/dl (8.6-10.3); Creatinine Clr Calc Pharmacy 74.1 ml/min; Est GFR (African American) 106.6 ml/min; Magnesium 1.8 mg/dl (1.7-2.4); Potassium 4.2 mmol/L (3.5-5.1)
[2022-12-03] MEDS: CEROVITE ADV FORMULA TAB PO SCH (09:01)
[2022-12-03] MEDS: CHOLECALCIFEROL 1,000 UNITS 25 MCG TAB PO SCH (09:01)
[2022-12-03] MEDS: methylPREDNISolone 40 MG in SYRINGE 0 ML IV SCH ×2 (09:01→13:13)
[2022-12-03] MEDS: FIRST - Mouthwash BLM 119 ML PO SCH ×2 (09:01→13:15)
[2022-12-03] MEDS: PANTOprazole 40 MG in SYRINGE 0 ML IV SCH (11:12)
[2022-12-03] MEDS ORDERED: PROMETHAZINE HCL 12.5 MG in SODIUM CHLORIDE 0.9% 50 ML IV ONE (12:00)
[2022-12-03] MEDS: ENOXAPARIN INJ 40 MG/0.4 ML SYR SQ SCH (14:56)
--- NOTE | 2022-12-03 15:17 | Discharge Summary ---
Date of Service December 03, 2022 Admission HPI Per Admitting Provider Cindi Santiago is a 62 year old female with metastatic pleomorphic carcinoma of the lung who is directly admitted from the oncology office due to failure to thrive, mouth ulcers, weight loss and decreased oral intake. She has been treated with radiation and Keytruda with last treatment on November 19. She reports fatigue and generalized weakness with these treatments with a dry cough. Her current main issues however are dysphagia, odynophagia, mouth pain, lip swelling with ulcers. Initially started with lip swelling with one lesion on her lip around November 12. She thought is was radiation luciano initially just on her lower lip. Since then it has been slowly getting worse every day with subsequent pain in her mouth. She was treated initially with Levaquin on November [address] Jesus reportedly for the swelling. Pulmonology treated her for thrush on November 12 which she reports initially helped but she is no longer taking, she also stopped her Trelegy Ellipta to help with this. She was given Valtrex on November 19 after an ER visit and then switched to acyclovir by her oncologist on November 20 - presumably for HSV. She has been given liquid morphine for pain but feels her lip swelling is worse on this and has not taken it for a couple of days. She was seen by oncology today and some concern for mucositis secondary to Keytruda and also patient with weight loss of 7lb over the last week. Requesting admission for possible EGD and rheumatology consult. Admission Exam Per Admitting Provider Constitutional: well developed; + not well nourished and no acute distress Eyes: + conjunctival abnormality (widespread erythema), PERRL and EOM intact bilaterally ENMT: few white spots on hard palate Tongue is mildly swollen and erythematous No oral ulcers present Crusting of lips which easily bleed, swollen, no blistering present Respiratory: normal respiratory effort, lungs clear to auscultation Cardiovascular: Rate/Rhythm: regular rate and regular rhythm Heart Sounds: no murmur Extremities: normal capillary refill; no calf tenderness and no pedal edema Gastrointestinal (Abdomen): Inspection/Auscultation: abdomen normal to inspection; abdomen not distended Percussion/Palpation: abdomen soft; abdomen nontender, no guarding and abdomen not rigid Musculoskeletal: no cyanosis or clubbing, extremities motor strength 5/5 Skin: Other than lips, no skin rash present Neurologic: moves all extremities and awake; not confused Psychiatric: A+Ox3, euthymic affect Principal Diagnosis Keytruda-induced oral mucositis, conjunctivitis Discharge Exam General: Well-appearing. No acute distress HEENT: PERRLA. Normal conjunctiva, anicteric sclera. Lips appear mildly erythem atous with minimal flaking much improved from last exam 3 days ago. Respiratory: Normal respiratory effort. Cardiovascular: Extremities appear perfused, without pedal edema. Neuro: Alert and oriented x3. Discharge Data Allergies Allergy/AdvReac Type Severity Reaction Status Date / Time latex Allergy Unknown rash Verified 10/31/22 09:16 acetaminophen [From Percocet] AdvReac Verified 10/31/22 09:16 oxycodone [From Percocet] AdvReac Verified 10/31/22 09:16 SULFA Allergy Unknown Uncoded 10/31/22 09:16 Consultations 11/26/22 19:20 Consult Gastroenterology Routine 11/26/22 20:17 Consult Oncology Routine 11/27/22 09:39 Consult Otolaryngology (Head and Neck) Routine Hospital Course (1) Mouth ulcers: 62 yo female with pmh of metastatic pleomorphic carcinoma of the lung, s/p radiation and immunotherapy treatment, presenting with 6 weeks mucositis secondary to Keytruda treatment. #Mucositis Improving with steroid treatment. - 40 mg IV TID methylprednisone - Vaseline for lips at evening - ENT: Supports Keytruda reaction etiology. - Magic mouth wash for pain - ferritin, B12 wnl - Add Biotene -Switched from Ativan to Klonopin. Some evidence that Klonopin could be used symptomatically in burning mouth syndrome. Although she does not have burning mouth syndrome, mechanism of pain would be similar. Since she is already chronically on Ativan, switching could help with anxiety and mouth pain. Sent short course of Klonopin to pharmacy. -Switched from morphine to po Dilaudid as trial of OP pain regimen. Was on liquid morphine prior to admission, which made her mouth symptoms worse. Sent prescription to pharmacy. (2) Bilateral conjunctivitis/Immunotherapy reaction Has had inflammatory reactions to Keytruda treatment previous (colitis, pneumonitis). Has now developed eye pain, discharge and erythematous, Conjunctivitis vs. uveitis See above (3) Malnutrition: Secondary to mouth sores and pain while eating. - Motivated to increase eating, has appetite. - Discussed future diet plan and goals - Going to start practicing calorie counting (4) Lung cancer: Prior treatment with Keytruda and radiation - PRN Dilaudid - Switch to Klonopin - Continue cough syrup to help with this (5) Electrolyte abnormality: - Hypomagnesium and hypokalemia- resolved (6) Hypertension: - Discontinue lisinopril as possible angioedema. BP remained at goal for duration. - Recommended holding until follow-up with outpatient physician. (2) Bilateral conjunctivitis: (3) Malnutrition: (4) Lung cancer: (5) Electrolyte abnormality: (6) Hypertension: Total Time Total Time Spent Total Time Spent (In Minutes): I spent 40 minutes seeing the patient, reviewing data, sending prescriptions, and documenting. Discharge Plan Discharge Items Patient Disposition: Home - Self-Care Reason For Visit: MALNUTRITION, CANCER-RELATED PAIN, MUCOSITIS Discharge Diagnosis: Keytruda-related oral mucositis, conjunctivitis Activity: Per Instructions section Non-emergency contact: Primary Care Provider Call non-emergency contact if: you have any medication questions, your symptoms worsen, your pain is not controlled and your temperature is above 101 Follow-up/Referrals: Antonio Luna DO [Primary Care Provider] - Poonam Moss DO [Resident] - Diet: Regular Addtl Attending Provider Instructions: Dear Cindi, You came to the hospital because of painful mouth ulcers, and weight loss due to the pain from attempting to eat. You were admitted to the hospital for further evaluation and determined to have a condition called oral mucositis, or an inflammation of the lining of your mouth and throat that we believe was caused by your Keytruda chemotherapy. Once this diagnosis was established, we started you on steroids to reduce the inflammation and also gave you analgesic mouthwash to relieve the mouth pain. Your symptoms improved on the IV steroids you are given, and the mouthwash helped with your mouth pain. Therefore, we feel that you are ready to be discharged home. 1. We are sending you home on a steroid called prednisone. Please take prednisone 60 mg daily for the next 7 days, starting tomorrow. Then 40 mg daily for the next 7 days after that. 2. We are also sending you on a short course of antianxiety medication called clonazepam. Please take clonazepam 0.5 mg up to 3 times daily as needed for anxiety for the next 6 days. While you are taking this medication, you should NOT take your lorazepam. Once you have completed the clonazepam, you may resume taking your usual lorazepam, also as needed. 3. You have been scheduled for an outpatient follow-up with your doctor, Dr. Poonam Moss. Your appointment has been scheduled for next December 10 at 10:45 AM. It is important that you make this appointment so that she is able to coordinate the rest of your care. If you have not heard from her office in the next 2 business days, you may contact them at [phone]. 4. Finally, we had stopped your lisinopril, as we were worried it was causing your oral inflammation symptoms. While we stopped it, your blood pressure remained under control. Therefore, we recommend that you stop taking it until you follow-up with Dr. Poonam Moss. It has been a pleasure to care for you here at [facility]. If you have any questions or concerns about your care, you may reach out to us at [phone]. Pending Studies at Discharge: No Stand-Alone Forms: My [facility], Smoking Cessation Medications and DC Order Prescriptions: New prednisone 20 mg tablet 20 mg PO DAILY Qty: 35 0RF Rx Instructions: 12/04/2022-12/10/2022: Take 60 mg (3 tablets) every morning, then 12/11/2022-12/17/2022: Take 40 mg (2 tablets) every morning. clonazepam 0.5 mg Tablet 0.5 mg PO Q8 PRN (Reason: oral pain) Qty: 20 0RF hydromorphone [Dilaudid] 2 mg tablet 2 mg PO Q6H PRN (Reason: pain) Qty: 14 0RF Rx Instructions: CA patient Continued pantoprazole [Protonix] 40 mg tablet,delayed release (DR/EC) 40 mg PO DAILY prochlorperazine maleate [Compazine] 10 mg tablet 10 mg PO Q6H PRN (Reason: Nausea) morphine 100 mg/5 mL concentrate 10 mg PO .Q4-6H PRN (Reason: Pain) tramadol 50 mg tablet 50 mg PO Q4H PRN (Reason: pain) Qty: 30 0RF levothyroxine [Synthroid] 112 mcg tablet 112 mcg PO DAILY Qty: 90 3RF aspirin 81 mg tablet,delayed release (DR/EC) 81 mg PO DAILY Qty: 30 2RF calcium carbonate-vitamin D3 [Os-Drew 500 + D3] 500 mg-15 mcg (600 unit) tablet 1 tab PO DAILY Qty: 30 0RF Trelegy Ellipta 100-62.5-25 mcg blister with device 1 inh inhalation DAILY Qty: 60 3RF albuterol sulfate 90 mcg/actuation HFA aerosol inhaler 2 puff inhalation Q6H PRN (Reason: Shortness Of Breath) Centrum Silver Women 8 mg iron-400 mcg-300 mcg tablet 1 tab PO DAILY cholecalciferol (vitamin D3) 50 mcg (2,000 unit) capsule 50 mcg PO DAILY ondansetron 8 mg tablet,disintegrating 8 mg PO Q8H Qty: 90 0RF Rx Instructions: Oral Dissolving tablet. Place under tongue until dissolved. (DME) nebulizer accessories Kit See Rx Instructions .ROUTE .MEDSUPPLY Qty: 2 0RF Rx Instructions: As directed (DME) compressor, for nebulizer Device See Rx Instructions .ROUTE .MEDSUPPLY Qty: 1 0RF Rx Instructions: As directed ipratropium-albuterol 0.5 mg-3 mg(2.5 mg base)/3 mL solution for nebulization 3 ml inhalation Q4H PRN (Reason: shortness of breath or wheezing) Qty: 180 5RF hydrocodone-homatropine [Hycodan] 5-1.5 mg/5 mL (5 mL) syrup 5 ml PO Q6H PRN (Reason: cough) Qty: 200 0RF lidocaine HCl [Lidocaine Viscous] 2 % solution 2.5 ml mucous membrane BID PRN (Reason: mouth pain) Qty: 100 0RF Rx Instructions: mix with 2cc maalox and swish/spit as needed for pain Held lisinopril 40 mg tablet 40 mg PO DAILY Hold Instructions: Provider's Order Discontinued lorazepam 1 mg tablet 1 mg PO Q8H PRN (Reason: Anxiety / insomnia) Discharge Orders: Discharge Order (Routine); Ordered 12/03/22 Ordered By: Bette Blair Admission Data Admit Date/Time: 11/26/22 17:55 Attending Provider: Chad Badillo Admit Provider: Jaspal Doherty Primary Care Provider: Antonio Luna Other Providers: Gera Mayer ; Tea Wiggins ; Indira Petersen ; Dixon Slater ; Sherrill Williamson ; Juan Manuel Calloway ; Som Moreno Other Interventions: Discharge Summary Assessment (RN) Last Done: 12/03/22 14:54 Supervising Physician Co-Signing Physician Notes I personally examined the patient and verified all rasheed points of history and exam, discussed case, and agree with decision making with the resident physician. Overall, feeling better this morning. Upon our morning exam, she is actually dressed -sneakers on -and ready for discharge. We discussed both medications and conservative measurements that may help palliate her symptoms. Mucositis, secondary to Keytruda Steroids, taper as noted above, side effects discussed with patient Dilaudid seem to work better than morphine; prescription sent for Dilaudid, discontinue morphine Some evidence that clonazepam may be better than lorazepam; patient unsure if there is any difference, but will continue clonazepam at least in the short-term Discussed other conservative measures including ice, SLS free toothpaste, Magic mouthwash etc. Severe protein/calorie malnutrition Lung cancer Additional per resident documentation Resident Activity Tracking Resident Involvement: Resident Care Provided Care Provided: Adult Hospital Medicine
== END 2022-12-03 16:13 | disposition home or self-care (01) | DRG 157 ==
LOC: 3N 17:55 → SUATTDRO 17:55

== ENCOUNTER 2024-01-17 14:23 | Inpatient (IN) ==
--- NOTE | 2024-01-17 14:58 | Emergency Department Note ---
Impression & Plan Hypoxia, Metastatic cancer, SOB (shortness of breath) ED Provider Note NAME: JOSE CERVANTES AGE: 63 SEX: F : 1960 ARRIVES VIA: Ambulance INFORMANT: [Patient][family] ED PROVIDER(S): [Baljai Rutherford MD] CHIEF COMPLAINT: Short of breath HISTORY OF PRESENT ILLNESS: The patient is a 63-year-old female with metastatic cancer. She is end-stage. She has pathologic fractures. She has been using palliative care services and is now at the point where she is going to be using hospice. She has been increasingly short of breath especially when flat. She has been hypoxic and just qualified for oxygen. She has not been eating and drinking and thinks that she is dehydrated. She was referred to the ER by her palliative care physician for hospitalization under hospice. She requires IV hydration and oxygenation. Hopefully, if she does well enough, she can be discharged on home hospice. PMHx/PSHx/Social Hx: See Below PHYSICAL EXAM: GENERAL: Patient is in no acute distress. HEENT: No acute trauma, normocephalic atraumatic, mucous membranes dry, no nasal congestion. NECK: No stridor, no adenopathy, no meningismus, trachea is midline. LUNGS: Crackles heard on the left, the right lung seems clear but does show some diminished breath sounds. No obvious respiratory distress. HEART: Without murmurs gallops or rubs, regular rate and rhythm. ABDOMEN: Soft, nontender, no peritonitis. EXTREMITIES: No cyanosis, full range of motion of all the joints without pain or difficulty. The patient does have some mild pedal edema, worse on the left. NEUROLOGIC: Oriented x 3, no acute motor or sensory deficits, no focal weakness. SKIN: No jaundice, no diaphoresis. DIFFERENTIAL DIAGNOSIS: Dehydration, electrolyte imbalance, CHF, pneumonia, among others. EMERGENCY DEPARTMENT PROCEDURES: MEDICAL DECISION MAKING: There is a moderate leukocytosis, this could be consistent with infection or just the stress of her current situation. There was a normal hemoglobin and platelet count. No renal failure or significant electrolyte abnormality. Chest x-ray does show some CHF and right diaphragm elevation. On exam, the patient appeared dehydrated. She was hypoxic without O2 supplementation. She was not febrile, she did not appear toxic. Patient was given a small bolus of fluid, 250 cc. Patient presents for a hospice admission. She wants minimal testing, she was asking for potential IV hydration and comfort measures. I spoke with the patient, I spoke with the palliative care physician, case management has been involved. The on-call hospitalist was consulted. Prior/Outside records/notes reviewed: Previous ED note from 01/05/2024 describing her findings, care and plan outpatient. Imaging/x-ray results per my interpretation: Chest x-ray shows elevation to the right hemidiaphragm. Some CHF was noted. No pneumothorax or focal infiltrate. Chronic Medical/Social conditions affecting care: Metastatic cancer. Now under hospice care. Care/Management discussed with: Case management, the on-call hospitalist. Level of care consideration(s): After review of the information above and other included data: --I believe the patient requires escalation of care to admission DISPOSITION: Admission Past Med/Surg History Problem List SOB (shortness of breath) (Acute) Metastatic cancer (Acute) Hypoxia (Acute) Acute respiratory failure with hypoxia Leukocytosis (Acute) Metastatic cancer (Acute) Fracture of thoracic spine (Acute) Sternal fracture (Acute) Precordial chest pain (Acute) Nocturnal dyspnea Metastasis to lung Dyspnea and respiratory abnormalities Morning headache Poor sleep Gait instability Hypothyroidism Acid reflux Thrush Psychosocial distress Counseling regarding end of life decision making Physician orders for life-sustaining treatment (POLST) form indicates patient wish for [id number] status Advanced care planning/counseling discussion Palliative care by specialist Weakness generalized (Unknown) Insomnia Cancer related pain Secondary malignancy of muscle Right knee pain Malnutrition (Acute) Mucositis Electrolyte abnormality Dysphagia Oral thrush Bilateral conjunctivitis GROSS (dyspnea on exertion) Cough Abnormal CT scan of lung Pulmonary nodule Lung mass Mediastinal adenopathy Hemoptysis Hypertension Hypercholesteremia Pace esophagus Fibromyalgia Lung cancer Pleomorphic carcinoma diagnosed 09/14/21 S/P bronchoscopy Lung cancer metastatic to brain Anxiety Depression Malignant neoplasm of lower lobe, right bronchus or lung (Chronic) Brain metastases (Chronic) Medical History 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 Recurrent urinary tract infection Diverticulosis Hiatal hernia IBS (irritable bowel syndrome) Ovarian cyst Thyroid disorder Graves disease Surgical History History of colonoscopy H/O endoscopy H/O shoulder surgery Right shoulder - rotator cuff surgery History of surgery Benign left breast removed at 13yo - benign per pt History of cholecystectomy H/O: hysterectomy Family History Mother , 84yo Heart disease aortic aneurysm Cardiac stents Cancer Pt unsure of type Stroke Diabetes Aunt Cancer Lung cancer Uncle Cancer Father , 68yo Ruptured aortic aneurysm Hypertension Sister Aortic aneurysm Sister No problems noted. Brother No problems noted. Son No problems noted. Daughter No problems noted. 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 Beliefs That Will Affect Care: None marital status: Current Living Situation: Family current occupational status: retired How many Children do You have: 3 Feels Safe at Home: Yes Childhood Exposure to Second-Hand Smoke: Yes Diet: regular caffeine: Yes (2 cups/day) during the past year weight has: remained stable Dental Care, Regularly: Yes Physical Activity Frequency: Daily Seatbelt Use: always Sunscreen Use: Yes Assistive Devices: None Allergies Allergies Allergy/AdvReac Type Severity Reaction Status Date / Time latex Allergy Intermediate rash Verified 01/17/24 16:12 Sulfa (Sulfonamide Allergy Intermediate BLISTERED Verified 01/17/24 16:12 Antibiotics) MOUTH oxycodone [From Percocet] AdvReac Unknown CAN'T Verified 01/17/24 16:12 REMEMBER Home Meds Home Medications Medication Instructions Recorded Confirmed albuterol sulfate 90 mcg/actuation 2 puff inhalation Q6H PRN 09/08/21 01/17/24 aerosol inhaler Shortness Of Breath cholecalciferol (vitamin D3) 50 50 mcg PO DAILY 09/08/21 01/17/24 mcg (2,000 unit) capsule [id number] 8 mg-folic 400 1 tab PO DAILY 09/08/21 01/17/24 mcg-K 50 mcg-lutein 300 mcg tablet (Centrum Silver Women) prochlorperazine maleate 10 mg 10 mg PO Q6H PRN Nausea 09/05/22 01/17/24 tablet (Compazine) clonazepam 1 mg tablet 1 mg PO TID PRN Anxiety 01/05/24 01/17/24 dexamethasone 2 mg tablet 2 mg PO QAM brain mets, s/p 01/05/24 01/17/24 neurosurgery tepotinib 225 mg tablet (Tepmetko) 0 mg PO HS 01/05/24 01/17/24 Previous Rx's Medication Instructions Recorded calcium carbonate 500 mg-vitamin 1 tab PO DAILY #30 tabs 04/25/22 D3 15 mcg (600 unit) tablet (Os-Drew 500 + D3) fluticasone fur. 100 mcg-umeclid 1 inh inhalation DAILY #60 ea 10/08/22 62.5 mcg-vilant 25 mcg inhalat.powder (Trelegy Ellipta) compressor, for nebulizer #1 ea 11/12/22 nebulizer accessories #2 ea 11/12/22 ipratropium 0.5 mg-albuterol 3 mg 3 ml inhalation Q4H PRN shortness 11/15/22 (2.5 mg base)/3 mL nebulization of breath or wheezing #180 mL soln hydromorphone 8 mg tablet 8 mg PO Q4H PRN severe breakthru 12/26/23 (Dilaudid) cancer pain 1 month #180 tabs walker #1 ea 12/26/23 levothyroxine 112 mcg tablet 112 mcg PO DAILY hypothyroid 3 12/30/23 (Synthroid) months #90 tabs pantoprazole 40 mg tablet,delayed 40 mg PO DAILY gerd 3 months #90 12/30/23 release (Protonix) tabs merly (Ultra-Light Rollator misc) #1 ea 12/30/23 Results & Data (ED) Vital Signs Vital Signs - 24 hr 01/17/24 14:36 01/17/24 14:36 01/17/24 14:37 Pulse Rate 93 H Respiratory Rate 18 Respiratory Effort / Characteristics Spontaneous Respiratory Depth Normal Blood Pressure 122/83 Blood Pressure Mean 96 Pulse Oximetry 85 L 84 L Oxygen Delivery Method Room Air Nasal Cannula Oxygen Flow Rate 0 Sepsis Recent Fever Within 48 Hours No Sepsis New/Unexplained Change in Mental Status No Sepsis Action Taken by Nursing No Action Required Oxygen Flow Rate - Titration 2 Pulse Oximetry Post Tiitration 94 01/17/24 14:39 Pulse Rate 91 H Respiratory Rate Respiratory Effort / Characteristics Respiratory Depth Blood Pressure Blood Pressure Mean Pulse Oximetry Oxygen Delivery Method Oxygen Flow Rate Sepsis Recent Fever Within 48 Hours Sepsis New/Unexplained Change in Mental Status Sepsis Action Taken by Nursing Oxygen Flow Rate - Titration Pulse Oximetry Post Tiitration Home Medications Current Medication List: was personally reviewed by me Laboratory Data Attestation: I reviewed the patient's lab results. 01/17/24 14:38 01/17/24 14:38 Lab Results 01/17/24 Range/Units 14:38 WBC 14.91 H (4.8-10.8) K/ul RBC 5.02 (4.20-5.40) M/uL Hgb 14.6 (12.0-16.0) g/dl Hct 46.1 (37.0-47.0) % MCV 91.8 (80.0-100.0) fL MCH 29.1 (25.0-34.0) pg MCHC 31.7 L (32.0-36.0) g/dL RDW Std Deviation 56.6 H (36.4-46.3) fL RDW Coeff of Timbo 17.2 H (11.5-14.5) % Plt Count 378 (130-400) K/uL MPV 9.4 (9.4-12.4) fL Immature Gran % (Auto) 0.9 % Neut % (Auto) 93.1 % Lymph % (Auto) 3.8 % [place] % (Auto) 2.0 % Eos % (Auto) 0.1 % Baso % (Auto) 0.1 % Neut # (Auto) 13.89 H (1.40-6.50) K/uL Lymph # (Auto) 0.56 L (1.20-3.40) K/uL [place] # (Auto) 0.30 (0.11-0.59) K/uL Eos # (Auto) 0.01 (0.00-0.50) K/uL Baso # (Auto) 0.02 (0.00-0.20) K/uL Immature Gran # (Auto) 0.13 (0.01-0.20) K/uL Polychromasia 1+ Sodium 134 L (136-145) mmol/L Potassium 3.7 (3.5-5.1) mmol/L Chloride 95 L (98-107) mmol/L Carbon Dioxide 28 (21-32) mmol/L Anion Gap 11 (3-11) BUN 15 (6-23) mg/dl Creatinine 1.00 (0.6-1.2) mg/dl Est Cr Clr Drug Dosing 59.4 ml/min Est GFR ( Amer) 68.5 ml/min Est GFR (Non-Af Amer) 59.1 ml/min BUN/Creatinine Ratio 15.0 (10-20) Glucose 118 H (70-99(Fasting)) mg/dl Calcium 8.8 (8.6-10.3) mg/dl Magnesium 2.0 (1.7-2.4) mg/dl Administered Medications Hydromorphone HCl (Hydromorphone Inj 0.5 Mg/0.5 Ml Syr) 0.4 mg IV Q2H PRN PRN Reason: Pain Stop: 01/31/24 15:28 Last Admin: 01/17/24 17:37 Dose: 0.4 mg Documented By: GENEVA Discontinued Medications Sodium Chloride (Nss) 250 mls @ 999 mls/hr IV .Q16M ONE Stop: 01/17/24 15:42 Last Infusion: 01/17/24 15:58 Dose: Infused Documented By: Admin: 01/17/24 15:39 Dose: 999 mls/hr Documented By: GENEVA Imaging Data Radiologist's Impression: Chest X-Ray 01/17/24 14:52 XR chest 1V portable CLINICAL HISTORY: sob TECHNIQUE: Single frontal radiograph of the chest was obtained. Comparison: Comparison is made to chest radiograph 01/05/2024 FINDINGS: No lines and tubes are seen. Cardiomegaly is noted. Relation of the right hemidiaphragm is again seen. Prominence of the pulmonary vasculature is seen. There may be small bilateral pleural effusions. IMPRESSION: 1. Cardiomegaly and mild pulmonary edema. 2. Possible bilateral pleural effusions. ACT 112: Negative or not required by law. Electronically signed by: Aldo De La Garza M.D. 01/17/2024 3:28 PM Discharge Plan Visit Data Chief Complaint: Shortness of Breath/Dyspnea Stated Complaint: SOB, CHEST PAIN ED Provider: Balaji Rutherford Discharge Problem: Hypoxia, Metastatic cancer, SOB (shortness of breath) Patient Disposition: Admitted As Inpatient Condition: Serious Forms Stand Alone Forms: My [facility], Important Visit Information Prescriptions Prescriptions: No Action prochlorperazine maleate [Compazine] 10 mg tablet 10 mg PO Q6H PRN (Reason: Nausea) (DME) Ultra-Light Rollator Misc See Rx Instructions .Route Qty: 1 0RF Rx Instructions: As directed levothyroxine [Synthroid] 112 mcg tablet 112 mcg PO DAILY 90 Days Qty: 90 3RF pantoprazole [Protonix] 40 mg tablet,delayed release (DR/EC) 40 mg PO DAILY 90 Days Qty: 90 0RF calcium carbonate-vitamin D3 [Os-Drew 500 + D3] 500 mg-15 mcg (600 unit) tablet 1 tab PO DAILY Qty: 30 0RF Trelegy Ellipta 100-62.5-25 mcg blister with device 1 inh inhalation DAILY Qty: 60 3RF albuterol sulfate 90 mcg/actuation HFA aerosol inhaler 2 puff inhalation Q6H PRN (Reason: Shortness Of Breath) Centrum Silver Women 8 mg iron-400 mcg-300 mcg tablet 1 tab PO DAILY cholecalciferol (vitamin D3) 50 mcg (2,000 unit) capsule 50 mcg PO DAILY (DME) nebulizer accessories Kit See Rx Instructions .ROUTE .MEDSUPPLY Qty: 2 0RF Rx Instructions: As directed (DME) compressor, for nebulizer Device See Rx Instructions .ROUTE .MEDSUPPLY Qty: 1 0RF Rx Instructions: As directed ipratropium-albuterol 0.5 mg-3 mg(2.5 mg base)/3 mL solution for nebulization 3 ml inhalation Q4H PRN (Reason: shortness of breath or wheezing) Qty: 180 5RF hydromorphone [Dilaudid] 8 mg tablet 8 mg PO Q4H PRN (Reason: severe breakthru cancer pain) 30 Days Qty: 180 0RF (DME) walker Misc See Rx Instructions .Route Qty: 1 0RF Rx Instructions: As directed Tepmetko 225 mg tablet 0 mg PO HS Rx Instructions: On hold per pt until told otherwise. Original Directions: 225mg by mouth at bedtime clonazepam 1 mg tablet 1 mg PO TID PRN (Reason: Anxiety) dexamethasone 2 mg tablet 2 mg PO QAM Referrals Referrals: Poonam Moss DO [Primary Care Provider] - Discharge Problem: Metastatic cancer Qualifiers: Area of secondary neoplastic involvement: unspecified site Qualified Code(s): C 79.9 - Secondary malignant neoplasm of unspecified site
[2024-01-17 15:06] LABS: Hematocrit (blood only) 46.1 % (37.0-47.0); Hemoglobin 14.6 g/dl (12.0-16.0); Mean Corpuscular Hemoglobin 29.1 pg (25.0-34.0); Mean Corpuscular Hgb Conc 31.7 g/dL (32.0-36.0); Mean Corpuscular Volume 91.8 fL (80.0-100.0); Mean Platelet Volume 9.4 fL (9.4-12.4); Platelet Count 378 K/uL (130-400); RDW Coefficient of Variation 17.2 % (11.5-14.5); RDW Standard Deviation 56.6 fL (36.4-46.3); Red Blood Count 5.02 M/uL (4.20-5.40); White Blood Count 14.91 K/ul (4.8-10.8)
[2024-01-17 15:24] LABS: Basophils # (auto) 0.02 K/uL (0.00-0.20); Basophils % (auto) 0.1 %; Eosinophils # (auto) 0.01 K/uL (0.00-0.50); Eosinophils % (auto) 0.1 %; Immature Granulocytes # (auto) 0.13 K/uL (0.01-0.20); Immature Granulocytes % (auto) 0.9 %; Lymphocytes # (auto) 0.56 K/uL (1.20-3.40); Lymphocytes % (auto) 3.8 %; Neutrophils # (auto) 13.89 K/uL (1.40-6.50); Neutrophils % (auto) 93.1 %; Polychromasia 1+
--- NOTE | 2024-01-17 15:29 | XRay Report ---
XR chest 1V portable CLINICAL HISTORY: sob TECHNIQUE: Single frontal radiograph of the chest was obtained. Comparison: Comparison is made to chest radiograph 01/05/2024 FINDINGS: No lines and tubes are seen. Cardiomegaly is noted. Relation of the right hemidiaphragm is again seen . Prominence of the pulmonary vasculature is seen. There may be small bilateral pleural effusions. IMPRESSION: 1. Cardiomegaly and mild pulmonary edema. 2. Possible bilateral pleural effusions. ACT 112: Negative or not required by law. Electronically signed by: Aldo De La Garza M.D. 01/17/2024 3:28 PM
[2024-01-17] MEDS ORDERED: GLYCOPYRROLATE 0.2 MG/ML VIAL IV PRN (15:31)
[2024-01-17] MEDS ORDERED: POLYETHYLENE (MIRALAX) 17 GM PACK PO PRN (15:32)
[2024-01-17] MEDS ORDERED: ONDANSETRON INJ 2 MG/ML 2 ML VIAL IV PRN (15:32)
[2024-01-17 15:37] LABS: Calcium 8.8 mg/dl (8.6-10.3); Creatinine Clr Calc Pharmacy 59.4 ml/min; Est GFR (African American) 68.5 ml/min; Est GFR (Non-African American) 59.1 ml/min; Potassium 3.7 mmol/L (3.5-5.1)
[2024-01-17] MEDS: SODIUM CHLORIDE 0.9% 250 ML IV ONE (15:39)
--- NOTE | 2024-01-17 15:44 | Palliative Care Consultation ---
Date of Consultation January 17, 2024 Assessment & Plan (1) Palliative care by specialist: (2) Advanced care planning/counseling discussion: (3) Physician orders for life-sustaining treatment (POLST) form indicates patient wish for [id number] status: Plan Cindi is being admitted for comfort care/end-of-life care. She is well-known to me from outpatient palliative medicine clinic. GIP evaluation with [facility] hospice has been requested. I have written comfort care orders for symptom management needs and I am available by pager all weekend should these need further adjustment. I have updated the ED attending and nursing. I met with Cindi and her daughter, Rossi, at the bedside. Reviewed the overall changes she has been experiencing for the past few weeks including the declining performance status, increasing weakness, increasing falls, increasing respiratory distress and worsening cough, chest tightness and pleuritic discomfort. More than likely she has a postobstructive pneumonia like change which has not improved despite 2 courses of antibiotics. Rib fractures remain unchanged and these are metastatic foci. She is aware that overall time is short. She does not wish to prolong her dying process and has been very clear consistently across all her clinic appointments that her goal overall is a promotion of quality of life and comfort. She has agreed to some minimal assessment with a chest x-ray and some labs to assure that it may be safe to give her some IV fluids. She reaffirms a CODE STATUS of DNR/DNI and the order has been written. I will continue to follow. Please do not hesitate to page me if any urgent needs arise. Thank you for allowing us to participate in the ongoing care of this patient. Please page with any additional concerns. Livan Howard DNP Director, Palliative Medicine History of Present Illness History of Present Illness Cindi came to ED with hypoxia and resp distress, due to a progressive metastatic lung cancer. results of noc ox demonstrate that she qualifies for home supplemental oxygen therapy with SpO2 below 89% for greater than 4 hours of the night. We were in the process of ordering her home oxygen therapy when her oxygen saturations began to worsen at home into the 70s, increasing respiratory distress, increasing cough and chest pain which ultimately resulted in her daughter calling 911 and having her transported to the emergency department for the third admission and evaluation. She reports increased respiratory distress and chest pain with any reclining or lying motion. She has only been able to tolerate sitting upright in a chair and notes that is been the only comfortable position especially when coughing. Her left lower extremity pain has worsened. She has not really been walking much and has been spending greater than 90% in a resting position. She is not taking much p.o. She drink some water through the day but has not really been eating anything else. She is growing weaker. She is more tired. She states that she realizes this is the end stage of her cancer. The new immunotherapy agent is not helping and she does not wish to continue this any further. She also is clear she does not wish to progress to any aggressive interventions and wants to focus now on comfort. She is amenable to an admission for comfort care and evaluation for inpatient hospice. [facility] hospice has been notified by care management. At her most recent clinic visit, it was clear that the transdermal fentanyl was not providing Cindi with adequate relief. The dose of been escalated from 12 to 25 mcg without substantial relief. She did not wish to have increase dose escalations due to her increasing risk of falls, generalized weakness, and some hypotension issues. We stopped the transdermal fentanyl and continues only on Dilaudid 8 mg tablets on an as-needed basis. She reports this was working well until her breathing began to worsen and at times the 8 mg dose did not provide adequate relief. She was given some IV fentanyl during the EMS transport and reports that she currently feels that her breathlessness is better and she remains on nasal cannula with oxygen saturations running between 87 to 93%, noti ng that it decreases with any exertion or prolonged conversation. My most recent [facility] palliative medicine note is below: Palliative Medicine Patient Name:Cindi Santiago Med Rec:[id number] Date:1960 Age/Gender:63/female Attending:Tea Wiggins (Hematology/Oncology)Al Consulting Provider:Lissette Howard DNP Date of Consult:01/06/2024 CHIEF COMPLAINT adv cancer.disease progression ER last night for worseningleftsidedanteriorchestpain,increasingdyspnea,BLEedema INTERIM HISTORY 01/06/24: Cindi returns for severe cancer pain Accompanied by dtr, Rossi ED visit revealed new progression and sternum fx, ?coughing related + older compression fx/rib fx posteriorly She went to [facility] ED last night, CTA revealed: 1. No pulmonary emboli identified. 2. Significant progression of extensive metastatic disease since CT of October 30, 2023. Increase in pulmonary metastases and right pleural metastatic disease, including a 6.4 x 3.4 cm right cardiophrenic angle mass. This may involve the right phrenic nerve given new right hemidiaphragm elevation. Progression of skeletal metastatic disease with pathologic T7 and T8 fractures with mild retropulsion of T8 and mild epidural extension of tumor at T7. Fractures extend through the posterior elements and may be unstable. Pathologic sternal fracture. Soft tissue implants, adrenal and hepatic metastases. 3.Significantincreaseinrightlungairspaceopacity.This mayreflecttumororpneumonia.Extensivesecretionswithinrightlowerlobebro nchi. ShehasstartedoralAbtx Sheanddtrandcontemplatinghospice Shedoesnotwantfurtheraggressiveorinvasiveinterventions 12/26/2023: Cindi is back in the clinic for a follow-up.She ishere to discuss the result from recent genomic study done oncancer specimenin September 2023which revealed mutation in theexon 14 of met gene. She continues to be tired and fatigued. She does not want chemotherapy or immunotherapy. Reports nofever chills or night sweats. Reports no nausea vomiting. 09/05/2023 The patient returns from [facility] afterdebulking of the intracranial cancer. She is scheduled to undergo gamma knife procedure in [facility]. She had a recent CT of the chest abdomen pelvis which shows systemic progression as well. She has noticedincreased swelling in the bilateral lower extremity which has been painful.Reports no other symptoms. . 07/23/2023: Cindi is back in the clinic for a follow-up visit. She ended up going to the [facility] on07/07/19 Stage at diagnosis:cT32 cN2 cM1 (oligometastatic brain) /IV Treatment: SRS to 2 brain lesions 2700 cGy in 3 fractions completed 10/11/2021 Carbo/Pemetrexed/Pembrolizumab [id number] x 6 cycles 10/27/21 - 02/09/2022then starting maintenance [id number]/7/2022 though held after 05/17/2022 with the onset of diarrhea Resumed pembrolizumab 09/07/2022 with budesonide planned but apparently not actually started Has not had dramatic relapse of diarrhea but with tapering of prednisone she has had significant exacerbation of respiratory issues Suspended after 10/19/2022 dose with some ongoing issues of respiratory difficulties and ultimately an evolving mucositis attributed at least in part to pembrolizumab toxicity EBRT to right lower lobe lung lesion 5000 cGy in 20 fractions over 25 elapsed days Also considering options: * Consider cautious rechallenge of pembrolizumab once complete steroid taper for mucositis but with concerns of reactivation of that and/or diarrhea * Could consider clinical trial but no longer wants to travel [place] [facility] [place] so * We will refer for [facility] IR evaluation for ablation to the lung and/or gluteal lesions as the only active sites. * In time will need to consider transition to more exclusive focus on palliative care Genetictesting:Guardant 360 completed 10/06/21. TP53 R273H alteration detected BRAF p345h vus MSI-H not detected No relevant mutations detected in EGFR, ALK, ROS1, MET, ERBB2, RET, NTRK, KRAS Repeated on 10/23/2023: PD-L1 IHC is positive: Meant sequence,exon 14 skipping:Detected Pathogenic variation in exon 14 Diagnosis History: 1. Presented with cough and hemoptysis along with weight loss. 2. CT chest 09/01/21 withlarge inferior righthilar mass with associated atelectasis and subcarinal adenopathy; 4 mmnon calcified right upperlobepulm nodule, small adrenal nodule. 3. PET/CT 09/13/21 with largehyper metabolic mass of theright lower lobe and posterior right hilum measuring 5.8 x 4.7 cm, small right pleural effusion, mildlyhyper metabolic subcarinal and righthilar adenopathy. 4. MRI brain 09/20/21 with 1.4 x 1 cm right enhancing lesion within right external capsule/subinsular region with vasogenic edema and 5 mm lesion within cortex of left parietal lobe. S/p completion of SBRT to 2 brain lesions, 2700 cGy on 10/11/21. 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 Onset of diarrhea shortly before her 03/23/2022 second dose of maintenance pembrolizumab placedthat on hold. Monitored through the weekend but with worsening symptoms started on prednisone 1 mg/kg (80 mg) daily as of 03/27/2022. C. difficile screen negative, full enteric pathogen screen pending Brain MRI 01/11/22 with stable right intracranial lesion and decreased size of left parietal cortical lesion. 01/15/2022 CT chest 1. The patient's known primary bronchogenic carcinoma involving the superior segment of the right lower lobe and posterior right hilum has mildly decreased in size from 09/13/2021. 2. Progressively worsened mediastinal and hilar adenopathy suspicious for lymphatic metastasis. 3. Small right pleural effusion. 4. Mild intralobular septal thickening may represent a component of developing pulmonary edema. 5. There are a few unchanged indeterminate solid pulmonary nodules measuring up to 3-4 mm. 03/14/2022 PET/CT1. An FDG avid right lower lobe lung mass has not appreciably changed in size as compared 01/15/2022. 2. There are enlarged and FDG avid right hilar and mediastinal lymph nodes, likely representing brijesh metastatic disease. These have mildly decreased in size as compared to 01/15/2022. 3. There is no evidence of distant metastatic disease in the abdomen or pelvis. 4. A 3 mm right upper lobe pulmonary nodule is pathologically indeterminate and too small for PET characterization. 4. Mild emphysema. 5. Colonic diverticulosis without CT evidence of acute diverticulitis. 6. Additional findings as above. 04/16/2022 MR brain wo/w 1. Slight decrease in size in the peripheral enhancing right subinsular/external capsule lesion which currently measures 12 x 7 mm. 2. The punctate left parietal lesion is no longer visualized and is likely resolved. 3. No new intracranial metastatic lesions identified. 4. No acute infarct. She completed a second opinion with [facility], thoracic oncology, 04/18/[address] Ishaan Arthur who agreed with her current treatment plan including rechallenging ICI and possible addition of vedolizumab (Entyvio). 06/06/2022 CT Chest 1. Interval improvement in dominant pulmonary mass and mediastinal lymph nodes. 2. Stable trace right pleural effusion. 3. Stable tiny pulmonary nodules as above. Current status 07/05/2022 MR brain wo/w 1. No acute intracranial abnormality. 2. Stable size of the 12 mm peripherally enhancing lesion within the right external capsule. 3. No new sites of disease identified. Current Status: 08/29/2022 PET/CT 1. Significant increase in size and FDG avidity of the primary right lower lobe mass [currently4.7 x 3.5 cm, previously 3.4 x 2.5 cm; SUV 31]since chest CT June 06, 2022, as described above. This favors disease progression. 2. Slight decrease in mediastinal and right hilar brijesh FDG uptake. 3. Interval development of a small focus of radiotracer uptake within the anterior aspect of left gluteus medius. This is nonspecific and a small muscular metastasis cannot be excluded. 11/08/2022 CT Chest Interval decrease in size of partially necrotic right lower lobe mass from prior PET/CT. This may reflect response to treatment. Stable mediastinal and hilar nodes. 11/08/2022 CT abd/pelvis 1. 1.3 cm enhancing lesion within the left gluteus medius which corresponds to the FDG avid focus on PET/CT of August 29, 2022. This is indeterminate and a skeletal metastasis remains within the differential. 2. No additional suspicious findings within the abdomen or pelvis. 12/06/2022 MR brain combo 1. No significant change in the 12 mm peripheral enhancing lesion within the right external capsule. 2. No new intracranial lesions identified. # Mucositis. Evolved September/October, worsening despite serial antibiotics and antiviral agents. Ultimately briefly admitted and responding to steroids planning a 4-week tapering course attributing this to pembrolizumab perhaps with viral exacerbation # SPORT PSYCHOLOGIST metastasis S/P SRS stable # Diarrhea onset at the end of 2022 and apparent pembrolizumab toxicity 05/17/2023 last Pembro 06/15/2022olonoscopy (Dr. Mulligan) Relatively unremarkable with diverticulosis, areas of normal-appearing mucosa with scattered areas of mild inflammation. 3 angioectasias found in the cecum no significant findings on pathology 06/22/2022 GI OV-Entyvio not likely to be covered, continue steroids/antimotility agents 08/27/2022 GI OV-weaned down to prednisone just 20 mg daily, transitioning to budesonide 9 mg daily Subsequently budesonide placed on hold and had been doing well on just 10 mg prednisone daily As pembrolizumab was restarted, budesonide was restarted as well 05/15/2023: CT chest abdomen pelvis:Interval resolution ofnoted necrotic left lower lobe mass. There is scarring compatible with posttreatment change along with reticular thickening which is nonspecific. CT abdomen pelvis revealed increase in 2.9 x 2.4 cm peripherally enhancing intramuscular lesion within the left gluteus medius and CT ofAugust 2022. Remains suspicious for metastatic disease. No additional suspicious finding within the abdomen or pelvis MRI brain03/22/2023: Interval stability of minimal rim enhancement along the right external capsule lesion. No new lesions are seenin MRI brain, 07/17/2023: 1. Intracranial metastatic foci seen within the right external capsule and the left cerebellar hemisphere. 2. The left cerebellar hemisphere lesion demonstrates surrounding vasogenic edema with mass effect and partial effacement of the fourth ventricle. However, no hydrocephalus at this time. 3. No intracranial hemorrhage or acute infarct. # Palliative care Roxanol for the discomfort she is having and for the cough/breathing issues. 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 cN2 cM1 (oligometastatic brain) /IV Treatment: SRS to 2 brain lesions 2700 cGy in 3 fractions completed 10/11/2021 Carbo/Pemetrexed/Pembrolizumab [id number] x 6 cycles 10/27/21 - 02/09/2022then starting maintenance [id number]/7/2022 though held after 05/17/2022 with the onset of diarrhea Resumed pembrolizumab 09/07/2022 with budesonide planned but apparently not actually started Has not had dramatic relapse of diarrhea but with tapering of prednisone she has had significant exacerbation of respiratory issues Suspended after 10/19/2022 dose with some ongoing issues of respiratory difficulties and ultimately an evolving mucositis attributed at least in part to pembrolizumab toxicity EBRT to right lower lobe lung lesion 5/126/2023 5000 cGy in 20 fractions over 25 elapsed days Also considering options: * Consider cautious rechallenge of pembrolizumab once complete steroid taper for mucositis but with concerns of reactivation of that and/or diarrhea * Could consider clinical trial but no longer wants to travel [place] [facility] [place] * We will refer for [facility] IR evaluation for ablation to the lung and/or gluteal lesions as the only active sites. * In time will need to consider transition to more exclusive focus on palliative care Genetictesting:Guardjohn 360 completed 10/06/21. TP53 R273H alteration detected BRAF p345h vus MSI-H not detected No relevant mutations detected in EGFR, ALK, ROS1, MET, ERBB2, RET, NTRK, KRAS Diagnosis History: 1. Presented with cough and hemoptysis along with weight loss. 2. CT chest 09/01/21 withlarge inferior righthilar mass with associated atelectasis and subcarinal adenopathy; 4 mmnon calcified right upperlobepulm nodule, small adrenal nodule. 3. PET/CT 09/13/21 with largehyper metabolic mass of theright lower lobe and posterior right hilum measuring 5.8 x 4.7 cm, small right pleural effusion, mildlyhyper metabolic subcarinal and righthilar adenopathy. 4. MRI brain 09/20/21 with 1.4 x 1 cm right enhancing lesion within right external capsule/subinsular region with vasogenic edema and 5 mm lesion within cortex of left parietal lobe. S/p completion of SBRT to 2 brain lesions, 2700 cGy on 10/11/21. 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 Onset of diarrhea shortly before her 03/23/2022 second dose of maintenance pembrolizumab placedthat on hold. Monitored through the weekend but with worsening symptoms started on prednisone 1 mg/kg (80 mg) daily as of 03/27/2022. C. difficile screen negative, full enteric pathogen screen pending Brain MRI 01/11/22 with stable right intracranial lesion and decreased size of left parietal cortical lesion. 01/15/2022 CT chest 1. The patient's known primary bronchogenic carcinoma involving the superior segment of the right lower lobe and posterior right hilum has mildly decreased in size from 09/13/2021. 2. Progressively worsened mediastinal and hilar adenopathy suspicious for lymphatic metastasis. 3. Small right pleural effusion. 4. Mild intralobular septal thickening may represent a component of developing pulmonary edema. 5. There are a few unchanged indeterminate solid pulmonary nodules measuring up to 3-4 mm. 03/14/2022 PET/CT1. An FDG avid right lower lobe lung mass has not appreciably changed in size as compared 01/15/2022. 2. There are enlarged and FDG avid right hilar and mediastinal lymph nodes, likely representing brijesh metastatic disease. These have mildly decreased in size as compared to 01/15/2022. 3. There is no evidence of distant metastatic disease in the abdomen or pelvis. 4. A 3 mm right upper lobe pulmonary nodule is pathologically indeterminate and too small for PET characterization. 4. Mild emphysema. 5. Colonic diverticulosis without CT evidence of acute diverticulitis. 6. Additional findings as above. 04/16/2022 MR brain wo/w 1. Slight decrease in size in the peripheral enhancing right subinsular/external capsule lesion which currently measures 12 x 7 mm. 2. The punctate left parietal lesion is no longer visualized and is likely resolved. 3. No new intracranial metastatic lesions identified. 4. No acute infarct. She completed a second opinion with [facility], thoracic oncology, 04/18/[address] Ishaan Arthur who agreed with her current treatment plan including rechallenging ICI and possible addition of vedolizumab (Entyvio). 06/06/2022 CT Chest 1. Interval improvement in dominant pulmonary mass and mediastinal lymph nodes. 2. Stable trace right pleural effusion. 3. Stable tiny pulmonary nodules as above. Current status 07/05/2022 MR brain wo/w 1. No acute intracranial abnormality. 2. Stable size of the 12 mm peripherally enhancing lesion within the right external capsule. 3. No new sites of disease identified. Current Status: 08/29/2022 PET/CT 1. Significant increase in size and FDG avidity of the primary right lower lobe mass [currently4.7 x 3.5 cm, previously 3.4 x 2.5 cm; SUV 31]since chest CT June 06, 2022, as described above. This favors disease progression. 2. Slight decrease in mediastinal and right hilar brijesh FDG uptake. 3. Interval development of a small focus of radiotracer uptake within the anterior aspect of left gluteus medius. This is nonspecific and a small muscular metastasis cannot be excluded. 11/08/2022 CT Chest Interval decrease in size of partially necrotic right lower lobe mass from prior PET/CT. This may reflect response to treatment. Stable mediastinal and hilar nodes. 11/08/2022 CT abd/pelvis 1. 1.3 cm enhancing lesion within the left gluteus medius which corresponds to the FDG avid focus on PET/CT of August 29, 2022. This is indeterminate and a skeletal metastasis remains within the differential. 2. No additional suspicious findings within the abdomen or pelvis. 12/06/2022 MR brain combo 1. No significant change in the 12 mm peripheral enhancing lesion within the right external capsule. 2. No new intracranial lesions identified. # Mucositis. Evolved September/October, worsening despite serial antibiotics and antiviral agents. Ultimately briefly admitted and responding to steroids planning a 4-week tapering course attributing this to pembrolizumab perhaps with viral exacerbation # SPORT PSYCHOLOGIST metastasis S/P SRS stable # Diarrhea onset at the end of 2022 and apparent pembrolizumab toxicity 05/17/2023 last Pembro 06/15/2022olonoscopy (Dr. Mulligan) Relatively unremarkable with diverticulosis, areas of normal-appearing mucosa with scattered areas of mild inflammation. 3 angioectasias found in the cecum no significant findings on pathology 06/22/2022 GI OV-Entyvio not likely to be covered, continue steroids/antimotility agents 08/27/2022 GI OV-weaned down to prednisone just 20 mg daily, transitioning to budesonide 9 mg daily Subsequently budesonide placed on hold and had been doing well on just 10 mg prednisone daily As pembrolizumab was restarted, budesonide was restarted as well 05/15/2023: CT chest abdomen pelvis:Interval resolution ofnoted necrotic left lower lobe mass. There is scarring compatible with posttreatment change along with reticular thickening which is nonspecific. CT abdomen pelvis revealed increase in 2.9 x 2.4 cm peripherally enhancing intramuscular lesion within the left gluteus medius and CT ofAugust 2022. Remains suspicious for metastatic disease. No additional suspicious finding within the abdomen or pelvis MRI brain03/22/2023: Interval stability of minimal rim enhancement along the right external capsule lesion. No new lesions are seenin MRI brain, 07/17/2023: 1. Intracranial metastatic foci seen within the right external capsule and the left cerebellar hemisphere. 2. The left cerebellar hemisphere lesion demonstrates surrounding vasogenic edema with mass effect and partial effacement of the fourth ventricle. However, no hydrocephalus at this time. 3. No intracranial hemorrhage or acute infarct. # Palliative care Roxanol for the discomfort she is having and for the cough/breathing issues. Also suggested the use of dextromethorphan based OTC cough medication Comorbidities: Pace's esophagus Fibromyalgia Grave's disease HTN Tobacco abuse HLD Ovarian cyst CURRENT SYMPTOMS pain anterior chest wall and throughout back, known compression fx in spine cough intermittent LLE pain Dyspnea with reclining, lying down, not able to tolerate flat. Comfortable upright or semi reclined > 45 degrees PAIN ASSESSMENT FOLLOW UP Current Pain Level:5/10 Pain Meds available to patient: *TDF 25mcg stopped 2 days ago, now only using Dilaudid 8mg PO q4h prn PAST MEDICAL HISTORY The patient's prior medical records and recent admissions have been reviewed in detail by me prior to this consultation. [facility] [place] Decisional Capacity: yes o Advance Care Plans: POLST on file HEMATOLOGIC/ONCOLOGIC HISTORY PROBLEMS: * Palliative care (regime/therapy) * Primary pleomorphic carcinoma of lung * Pace's esophagus (disorder) * Chest pain * Cough * Dehydration * Diarrheal disorder (disorder) * Dyspnea (finding) * Fibromyalgia * Graves' disease (disorder) * HTN * Hemoptysis * Hx of smoking * Hypercholesterolemia (disorder) * Impaired mobility (finding) * Lower extremity edema * Lung mass * Ovarian cyst * Pulmonary nodule * Thrombocytosis * Thyroid disorder * Tobacco abuse ALERGIES Percocet, Sulfa (Sulfonamide Antibiotics) and latex CURRENT MEDICATIONS * Multivitamins Oral Tablet * Levothyroxine [id number] mcg tablet * Vitamin D3 (Cholecalciferol Oral)50 mcg (2,000 unit) capsule * Compazine (Prochlorperazine Oral)10 mg tablet * Pantoprazole (Sodium) Oral Delayed Release * Dexamethasone Oral4 mg tablet * Tepotinib Kmtw131 mg tablet * Albuterol HFA Inhaler 90 mcg/wnvreenfb38 mcg/actuation HFA aerosol inhaler * Hydromorphone Oral8 mg tablet * Os-Drew 500 + D (Calcium Carb-Cholecalciferol Oral 500 mg-5 mcg (200 unit))500 mg-5 mcg (200 unit) tablet REVIEW OF SYSTEMS See HPI PHYSICAL EXAM Vital Signs: Blood pressure: 95/69, Pulse: 89, Temperature: 36.5 C, Respirations: 16, O2 sat: 95%, Pain Scale: 5, Height: 167 cm, Weight: 81.4 kg, BSA: 1.94, BMI: 29.19 kg/m2 Appears uncomfortable and tired NCAT, cushingoid face pupils reactive but left > right is slower EOM testing deferred d/t headache trigger MMM, +thrush, dentition intact Normal resp effort, mild use of accessory muscles, lungs clear but sl diminished chest wall tender roque upper anterior field, mid sternum S1S2 no JVD abd sl tender, BS+, no distention or guarding Unchanged left gluteal tenderness AAO x3 Skin pale, warm DATA REVIEW LAB RESULTS Lab Results CBC Manual Differential Coags Chemistries Anemia Labs Microbiology Hormones Urine Stool Electrophoresis, Protein Lab - Other ASSESSMENT * Encounter for Palliative Care * Symptom Management for: cancer pain, compression fx pain - trial miacalcin and continue Dilaudid as outlined below, Stop TDF per her preference * Safety with ambulation, use rollator walker, rest in between * Goals of care/Advanced Illness Planning discussions - hospice and VNS reviewed PLAN * Remain off TDF, continue Dilaudid 8mg PO but use 1 tab PO TID and may use 1 tab PO q3h prn BTP in between * Expedite home noc ox testing, Chris's notified by nursing - will move pt to top of list/awaiting device return * Brief discussion re hospice. She is on new chemo (tepmetko), so far seems to be tolerating. * Follow up 2 weeks, sooner if needed. Has RTC with onc in early January/around 4 weeks oftepmetko start. ED labs reviewed. * Time Spent: I spent 60 minutes rzfn-yl-[id number] with the patient, with greater than 50% time spent on counselling the patient/family and coordinating complex care needs. * TS 75 minutes, greater than 50% in face to face counseling. Complexity: HIGH Thank you for allowing us to participate in the ongoing care of this patient. Please don't hesitate to call or page with any additional concerns. Lissette Howard DNP Director, Palliative Care Electronically signed by Lissette Howard DNP 01/06/2024 02:57 PM EDT Allergies Allergy/AdvReac Type Severity Reaction Status Date / Time latex Allergy Intermediate rash Verified 01/17/24 16:12 Sulfa (Sulfonamide Allergy Intermediate BLISTERED Verified 01/17/24 16:12 Antibiotics) MOUTH oxycodone [From Percocet] AdvReac Unknown CAN'T Verified 01/17/24 16:12 REMEMBER Home Medications Medication Instructions Recorded Confirmed Type glycopyrrolate 0.2 mg/mL injection 0.4 mg (2 mL) IV Q4H PRN 01/20/24 Rx solution secretions #25 mL Patient History Medical History 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 Recurrent urinary tract infection Diverticulosis Hiatal hernia IBS (irritable bowel syndrome) Ovarian cyst Thyroid disorder Graves disease Surgical History History of colonoscopy H/O endoscopy H/O shoulder surgery Right shoulder - rotator cuff surgery History of surgery Benign left breast removed at 13yo - benign per pt History of cholecystectomy H/O: hysterectomy Family History Mother , 84yo Heart disease aortic aneurysm Cardiac stents Cancer Pt unsure of type Stroke Diabetes Aunt Cancer Lung cancer Uncle Cancer Father , 68yo Ruptured aortic aneurysm Hypertension Sister Aortic aneurysm Sister No problems noted. Brother No problems noted. Son No problems noted. Daughter No problems noted. Daughter History of brain surgery Having in September 2021 at [facility] [place] Multiple sclerosis Social History Smoking Status: Former smoker Tobacco Type: Cigarettes Age Started Using Tobacco: 13; Age Quit Using Tobacco: 60; packs per day: 0.5; Cigarettes Per Day: 10+; Second Hand Exposure: No; Do You Dip or Chew Tobacco: No; Hx Alcohol Use: No Hx Substance Use: No Preferred Language: Polish Communication Ability: Unable Visual Impairment: No Limitations Hearing Ability: Normal Oil Burner Repairer Required: No Beliefs That Will Affect Care: None marital status: Current Living Situation: Spouse and Family Current Living Situation Comment: lives with daughter current occupational status: retired How many Children do You have: 3 Feels Safe at Home: Yes Childhood Exposure to Second-Hand Smoke: Yes Diet: regular caffeine: Yes (2 cups/day) during the past year weight has: remained stable Dental Care, Regularly: Yes Physical Activity Frequency: Daily Seatbelt Use: always Sunscreen Use: Yes Assistive Devices: Glasses and Oxygen - Continuous Results & Data Vital Signs (Past 12 Hours) Vital Signs Pulse Resp BP Pulse Ox O2 Del Method O2 Flow Rate 01/17/24 14:39 91 H 01/17/24 14:37 84 L Nasal Cannula 0 01/17/24 14:36 93 H 18 122/83 85 L Room Air PG Care Time/CCT Total # of Minutes Spent Total Time Spent with Patient: Total time spent is greater than 50% in coordination of care (as documented) at patient's floor/unit and/or counseling patient: Advanced Care Planning 50259 Advanced Care Planning 30 [place] [address] INT INP/OBS CARE 1/40MIN Patient Type New Medical Decision Making High Complexity Diagnoses Palliative care by specialist Z51.5 Advanced care planning/counseling discussion Z71.89 Physician orders for life-sustaining treatment (POLST) form indicates patient wish for uu-bwc-wklfodkqojo status Z66 Additional Codes Advanced Care Planning - 30500 Advanced Care Planning 30 Min: 18713 Advanced Care Planning 30 Min ([id number])
--- NOTE | 2024-01-17 15:54 | History & Physical Report ---
Date of Service January 17, 2024 Assessment & Plan (1) Metastatic cancer: Plan: Plan for inpatient admission for comfort care as per palliative care Orders placed by palliative care for pain, agitation Discussed medications with the patient and will continue on her dexamethasone, levothyroxine and maintenance inhaler Continue duonebs PRN Add codeine cough syrup PRN Aim for home with hospice if able (2) Acute respiratory failure with hypoxia: Plan: Aim O2 sats > 90% Plan VTE Prophylaxis - not prescribed due to comfort care status Diet - regular Disposition - admit to med/surg Admission and Anticipated Discharge Date Admission Date: January 17, 2024 History of Present Illness Chief Complaint: Shortness of breath Primary Care Provider: Poonam Moss DO Cindi Santiago is a 63-year-old female with metastatic lung cancer who presents to the ER with worsening respiratory status, chest pain and hypoxia. She was in the process of getting her supplemental oxygen therapy but continued to decline and therefore came to the ER. She was seen by her palliative provider and recommended admission for comfort care/end-of-life care. Allergies Allergy/AdvReac Type Severity Reaction Status Date / Time latex Allergy Intermediate rash Verified 01/17/24 16:12 Sulfa (Sulfonamide Allergy Intermediate BLISTERED Verified 01/17/24 16:12 Antibiotics) MOUTH oxycodone [From Percocet] AdvReac Unknown CAN'T Verified 01/17/24 16:12 REMEMBER Home Medications Medication Instructions Recorded Confirmed Type albuterol sulfate 90 mcg/actuation 2 puff inhalation Q6H PRN 09/08/21 01/05/24 History aerosol inhaler Shortness Of Breath cholecalciferol (vitamin D3) 50 50 mcg PO DAILY 09/08/21 01/05/24 History mcg (2,000 unit) capsule rhhzajks-wpgm-gxvl 8 mg-folic 400 1 tab PO DAILY 09/08/21 01/05/24 History mcg-K 50 mcg-lutein 300 mcg tablet (Centrum Silver Women) calcium carbonate 500 mg-vitamin 1 tab PO DAILY #30 tabs 04/25/22 01/05/24 Rx D3 15 mcg (600 unit) tablet (Os-Drew 500 + D3) prochlorperazine maleate 10 mg 10 mg PO Q6H PRN Nausea 09/05/22 01/05/24 History tablet (Compazine) fluticasone fur. 100 mcg-umeclid 1 inh inhalation DAILY #60 ea 10/08/22 01/05/24 Rx 62.5 mcg-vilant 25 mcg inhalat.powder (Trelegy Ellipta) compressor, for nebulizer #1 ea 11/12/22 04/05/23 Rx nebulizer accessories #2 ea 11/12/22 04/05/23 Rx ipratropium 0.5 mg-albuterol 3 mg 3 ml inhalation Q4H PRN shortness 11/15/22 01/05/24 Rx (2.5 mg base)/3 mL nebulization of breath or wheezing #180 mL soln hydromorphone 8 mg tablet 8 mg PO Q4H PRN severe breakthru 12/26/23 01/05/24 Rx (Dilaudid) cancer pain 1 month #180 tabs walker #1 ea 12/26/23 12/26/23 Rx levothyroxine 112 mcg tablet 112 mcg PO DAILY hypothyroid 3 12/30/23 01/05/24 Rx (Synthroid) months #90 tabs pantoprazole 40 mg tablet,delayed 40 mg PO DAILY gerd 3 months #90 12/30/23 01/05/24 Rx release (Protonix) tabs walker (Ultra-Light Rollator misc) #1 ea 12/30/23 Rx clonazepam 1 mg tablet 1 mg PO TID PRN Anxiety 01/05/24 01/05/24 History dexamethasone 2 mg tablet 2 mg PO QAM brain mets, s/p 01/05/24 01/05/24 History neurosurgery tepotinib 225 mg tablet (Tepmetko) 225 mg PO HS 01/05/24 01/05/24 History Past Med/Surg History Problem List (Updated 01/17/24 @ 15:54 by Jaspal Doherty MD) Acute respiratory failure with hypoxia Leukocytosis (Acute) Metastatic cancer (Acute) Fracture of thoracic spine (Acute) Sternal fracture (Acute) Precordial chest pain (Acute) Nocturnal dyspnea Metastasis to lung Dyspnea and respiratory abnormalities Morning headache Poor sleep Gait instability Hypothyroidism Acid reflux Thrush Psychosocial distress Counseling regarding end of life decision making Physician orders for life-sustaining treatment (POLST) form indicates patient wish for di-aao-viaphrxzxoo status Advanced care planning/counseling discussion Palliative care by specialist Weakness generalized (Unknown) Insomnia Cancer related pain Secondary malignancy of muscle Right knee pain Malnutrition (Acute) Mucositis Electrolyte abnormality Dysphagia Oral thrush Bilateral conjunctivitis GROSS (dyspnea on exertion) Cough Abnormal CT scan of lung Pulmonary nodule Lung mass Mediastinal adenopathy Hemoptysis Hypertension Hypercholesteremia Pace esophagus Fibromyalgia Lung cancer Pleomorphic carcinoma diagnosed 09/14/21 S/P bronchoscopy Lung cancer metastatic to brain Anxiety Depression Malignant neoplasm of lower lobe, right bronchus or lung (Chronic) Brain metastases (Chronic) Medical History 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 Recurrent urinary tract infection Diverticulosis Hiatal hernia IBS (irritable bowel syndrome) Ovarian cyst Thyroid disorder Graves disease Surgical History History of colonoscopy H/O endoscopy H/O shoulder surgery Right shoulder - rotator cuff surgery History of surgery Benign left breast removed at 13yo - benign per pt History of cholecystectomy H/O: hysterectomy Family History Mother , 84yo Heart disease aortic aneurysm Cardiac stents Cancer Pt unsure of type Stroke Diabetes Aunt Cancer Lung cancer Uncle Cancer Father , 68yo Ruptured aortic aneurysm Hypertension Sister Aortic aneurysm Sister No problems noted. Brother No problems noted. Son No problems noted. Daughter No problems noted. Daughter History of brain surgery Having in September 2021 at [facility] [place] Multiple sclerosis Social History Smoking Status: Former smoker Age Started Using Tobacco: 13; Age Quit Using Tobacco: 60; packs per day: 0.5; Cigarettes Per Day: 1/2 PPD x 25yrs; Second Hand Exposure: Yes; Do You Dip or Chew Tobacco: No; Hx Alcohol Use: No Hx Substance Use: No Preferred Language: Armenian Communication Ability: Effective Visual Impairment: No Limitations Hearing Ability: Normal Mailing Machine Helper Required: No Beliefs That Will Affect Care: None marital status: Current Living Situation: Family current occupational status: retired How many Children do You have: 3 Feels Safe at Home: Yes Childhood Exposure to Second-Hand Smoke: Yes Diet: regular caffeine: Yes (2 cups/day) during the past year weight has: remained stable Dental Care, Regularly: Yes Physical Activity Frequency: Daily Seatbelt Use: always Sunscreen Use: Yes Assistive Devices: None Physical Exam Constitutional: well developed; + not well nourished and no acute distress Respiratory: + labored breathing and + uses accessory muscles Psychiatric: Orientation: alert and oriented x 3 Results & Data Results & Data Vital Signs (Past 12 Hours) Vital Signs Pulse Resp BP Pulse Ox O2 Del Method O2 Flow Rate 01/17/24 14:39 91 H 01/17/24 14:37 84 L Nasal Cannula 0 01/17/24 14:36 93 H 18 122/83 85 L Room Air Laboratory Results Abnormal lab results 01/17/24 Range/Units 14:38 WBC 14.91 H (4.8-10.8) K/ul MCHC 31.7 L (32.0-36.0) g/dL RDW Std Deviation 56.6 H (36.4-46.3) fL RDW Coeff of Timbo 17.2 H (11.5-14.5) % Neut # (Auto) 13.89 H (1.40-6.50) K/uL Lymph # (Auto) 0.56 L (1.20-3.40) K/uL Sodium 134 L (136-145) mmol/L Chloride 95 L (98-107) mmol/L Glucose 118 H (70-99(Fasting)) mg/dl Code Status & VTE Plan Code Status DNR/DNI as per palliative care note VTE Prophylaxis Plan VTE Prophylaxis will be ordered: No PG Care Time/CCT Total # of Minutes Spent Total Time Spent with Patient: Total time spent is greater than 50% in coordination of care (as documented) at patient's floor/unit and/or counseling patient: Coding Level of Care Code 25238 INT INP/OBS CARE 2/55MIN Diagnoses Metastatic cancer C79.9 Area of secondary neoplastic involvement: unspecified site Acute respiratory failure with hypoxia J96.01 (1) Metastatic cancer Area of secondary neoplastic involvement: unspecified site Qualified Code(s): C79.9 - Secondary malignant neoplasm of unspecified site
[2024-01-17] MEDS: HYDROmorphone INJ 0.5 MG/0.5 ML SYR IV PRN (17:37)
[2024-01-17] MEDS ORDERED: guaiFENesin/CODEINE 100MG/10MG 5ML UDC PO PRN (20:34)
[2024-01-17] MEDS: ALBUT/IPRATROP 3MG/0.5MG NEB 3 ML VIAL NEB STA (20:41)
[2024-01-18] MEDS: LEVOTHYROXINE SODIUM 112 MCG TABLET PO SCH (06:34)
[2024-01-18] MEDS: dexAMETHasone 1 MG TAB PO SCH (08:12)
[2024-01-18] MEDS: PANTOprazole 40 MG TAB PO SCH (08:12)
[2024-01-18] MEDS: FLUTICASONE FUROATE 100MCG 14 PUFFS/INHALER INH SCH (08:13)
[2024-01-18] MEDS: UMECLIDINIUM/VILANTEROL 62.5/25MCG 7 PUFFS/INHALER INH SCH (08:13)
[2024-01-18] MEDS: DOCUSATE SODIUM/SENNA 50/8.6MG TAB PO SCH (08:15)
[2024-01-18] MEDS ORDERED: NON-FORMULARY MEDICATION (Fluticasone-Umeclidin-Vilanter [Trelegy Ellipta] 100-62.5-25 mcg INH SCH (09:00)
[2024-01-18 14:59] VITALS: BP 97/66; TEMP 97.9
--- NOTE | 2024-01-18 15:22 | Hospitalist Progress Note ---
Date of Service January 18, 2024 Assessment & Plan (1) Metastatic cancer: Plan: hx of metastatic lung cancer Plan for inpatient admission for comfort care as per palliative care - pt denied GIP on 01/17 Palliative care consulted - Orders placed for pain, agitation Discussed medications with the patient and will continue on her dexamethasone, levothyroxine and maintenance inhaler Continue duonebs PRN Add codeine cough syrup PRN Will add back PO diluadid regiment patient was using at home. Using the next 24- 36 hours to see how much additional Dilaudid she needs to be able to scale medications for discharge CM following - plan for discharge home with hospice, earliest saturday (2) Acute respiratory failure with hypoxia: Plan: titrate as needed for comfort Plan VTE Prophylaxis - not prescribed due to comfort care status Disposition - continued inpatient stay arranging outpatiet hospice Family updated at bedside Admission and Anticipated Discharge Date Admission Date: January 17, 2024 Subjective patient visited multiple times throughout the day. IV diluadid takes the edge off, but not long lasting was takign 8mg PO dilaudid q4H at home- dosed for prn but was taking as scheduled. ate breakfast Physical Exam Physical Exam: General: NAD, vitals as above, sitting on the side of bed, appear comfortable during morning visit Pulm: breathing unlabored, on NC CV: well perfused, RR extremities: moves all extremities Results & Data Results & Data Vital Signs (Past 12 Hours) Vital Signs Temp Pulse Resp BP Pulse Ox O2 Del Method O2 Flow Rate 01/18/24 14:56 36.6 C 90 16 97/66 L 97 Nasal Cannula 5 01/18/24 11:54 Nasal Cannula 4 01/18/24 07:15 92 Nasal Cannula 3 01/18/24 07:15 Nasal Cannula 4 01/18/24 07:07 36.5 C 88 16 96/68 L 97 Nasal Cannula 3 PG Care Time/CCT Total # of Minutes Spent Total Time Spent with Patient: Total time spent is greater than 50% in coordination of care (as documented) at patient's floor/unit and/or counseling patient: Coding Level of Care Code 55515 SUB INP/OBS CARE 2/35MIN Diagnoses Metastatic cancer C79.9 Area of secondary neoplastic involvement: unspecified site Acute respiratory failure with hypoxia J96.01 (1) Metastatic cancer Area of secondary neoplastic involvement: unspecified site Qualified Code(s): C79.9 - Secondary malignant neoplasm of unspecified site
[2024-01-18] MEDS ORDERED: NYSTATIN SUSP 500,000 U/5 ML UDC PO PRN (18:43)
[2024-01-18] MEDS: ALBUT/IPRATROP 3MG/0.5MG NEB 3 ML VIAL NEB PRN (19:38)
[2024-01-19] MEDS: HYDROmorphone INJ 0.5 MG/0.5 ML SYR IV PRN (02:59)
[2024-01-19] MEDS: LORazepam 0.5 MG in SYRINGE 0.25 ML IV PRN ×2 (03:45→19:23)
[2024-01-19] MEDS: ONDANSETRON INJ 2 MG/ML 2 ML VIAL IV PRN (03:49)
--- NOTE | 2024-01-19 11:39 | Hospitalist Progress Note ---
Date of Service January 19, 2024 Assessment & Plan (1) Metastatic cancer: Plan: hx of metastatic lung cancer Plan for inpatient admission for comfort care as per palliative care Palliative care consulted - Orders placed for pain, agitation Discussed medications with the patient and will continue on her dexamethasone, levothyroxine and maintenance inhaler Continue duonebs PRN Add codeine cough syrup PRN Continue PO Dilaudid regiment patient was using at home with additonal IV prn dilaudid Roxanol added for dyspnea CM following - plan for discharge home with hospice, earliest saturday, more likely Saturday - pt denied GIP on 01/17 - hospice to re-eval 01/19 (2) Acute respiratory failure with hypoxia: Plan: titrate as needed for comfort Plan VTE Prophylaxis - not prescribed due to comfort care status Disposition - continued inpatient stay arranging outpatient hospice if possible Family updated at bedside 01/17 Discussed case with Jeannine Junior, palliative care Admission and Anticipated Discharge Date Admission Date: January 17, 2024 Subjective patient visited multiple times this morning - mostly resting appetite is poor and patient feels more difficultly breathing reports pain at the time of my encounter but does not want pain medication Review of Systems Review of Systems: All systems reviewed & are unremarkable except as noted in Subjective Physical Exam Physical Exam: General: NAD, vitals as above, lying in bed, appears more ill during visit today Pulm: on Nasal cannula, increased work of breathing compared to yesterday CV: well perfused, RR extremities: moves all extremities Results & Data Results & Data Vital Signs (Past 12 Hours) Vital Signs Pulse Resp Pulse Ox O2 Del Method O2 Flow Rate 01/19/24 07:40 Nasal Cannula 5 01/19/24 04:14 94 H 24 98 Nasal Cannula 6 PG Care Time/CCT Total # of Minutes Spent Total Time Spent with Patient: Total time spent is greater than 50% in coordination of care (as documented) at patient's floor/unit and/or counseling patient: Coding Level of Care Code 29356 SUB INP/OBS CARE 2/35MIN Diagnoses Metastatic cancer C79.9 Area of secondary neoplastic involvement: unspecified site Acute respiratory failure with hypoxia J96.01 (1) Metastatic cancer Area of secondary neoplastic involvement: unspecified site Qualified Code(s): C79.9 - Secondary malignant neoplasm of unspecified site
[2024-01-19] MEDS: MoRPHine SULFATE 10 MG/0.5 ML UDP PO PRN (12:41)
[2024-01-19 13:03] VITALS: PULSE 92; RESP 18; O2SAT 96
--- NOTE | 2024-01-19 15:01 | Communication Note ---
Date of Service: January 19, 2024 I was asked by nursing staff to come talk to family at bedside around 1300. Family concerned about worsening SOB and dyspnea. Patient had just had roxanol with minimal improvement. Discussed reeval with palliative care and hospice agency tomorrow. Around 1430 - was contacted by Lissette Howard that Cindi's family has expressed concerns that breathing is getting worse and Cindi is transitioning to active dying. She recommended starting an IV diludid infusion. I visited Cindi at bedside, present. Reports still struggling to breath. Agreeable to the IV Dilaudid drip. IV Dilaudid drip started at 0.5mg per hour with 0.5mg q15min prn bolus per Lissette Howard's recommendations. She has also offered to meet with family later this evening. At this point, it is unlikely she will be able to return home with hospice.
[2024-01-19] MEDS: HYDROmorphone/NSS 100 MG/100 ML BAG IV SCH (15:56)
[2024-01-19] MEDS: HYDROmorphone BOLUS from BAG IV PRN (19:23)
[2024-01-20] MEDS: LORazepam 0.5 MG in SYRINGE 0.25 ML IV PRN ×2 (00:47→02:49)
[2024-01-20] MEDS ORDERED: LORazepam 1 MG in SYRINGE 0.25 ML IV PRN (09:45)
[2024-01-20] MEDS ORDERED: HYDROmorphone BOLUS from BAG IV PRN (09:46)
--- NOTE | 2024-01-20 09:50 | Communication Note ---
Date of Service: January 20, 2024 Palliative Medicine Brief Note Full note to follow. Met with Jack whitley at the bedside [phone]. She is increasingly lethargic and less interactive. She was very difficult overnight with increasing agitation, restlessness, trying to get out of bed. Required a dose of Ativan at 2 AM with some improvement. Her opioid infusion has had to be increased steadily over the weekend. She is currently on Dilaudid 1.5 mg/h with some improvement in her dyspnea. There is intermittent increased effort with use of abdominal muscles noted. Overall, family feels she is a little bit more comfortable but not ideally comfortable and they continue to see her distress. They are in agreement to escalate medications to optimize comfort. We agreed to increase hydromorphone infusion to 1.7 mg/h, change bolus to 0.5 mg every 15 minutes as needed, scheduled Ativan 1 mg every 8 hours IV, and use as needed Ativan 1 mg IV every 2 hours as needed for breakthrough symptoms, terminal agitation, terminal delirium. All nonessential and on comfort medications have been discontinued including home oral medications that were part of a routine/daily regimen. She is no longer taking anything p.o. Additional discussions were centered around discussing and dying with their grandchildren who range in ages from 5-15. Additional supportive resources were provided. is requesting additional information on what to expect during the dying process to provide family with additional guidance. We have conveyed this request to [facility] hospice and asked that they bring along that information when they come to reevaluate her for GIP later today. Family asking what time hospice will come as thy need to head home for some showers/rest/animal care. For now, no scheduled time for the [facility] GIP eval and they will notify care management when they are en route. Discussed importance of self care and rest. Support and reassurance provided. They would like additional sales service technician visits. is post op open heart, requesting bereavement cart with some healthier whole food options, fresh fruit requested. My full note will follow. I will be in outpatient clinic all day today and available by pager. Please not hesitate to call or page me if additional information or assistance is needed. TS 45min, 100% face to face ACP discussion for BOBJ DEVELOPER Thank you for allowing us to participate in the ongoing care of this patient. Please page with any additional concerns. Livan Howard DNP Director, Palliative Medicine
[2024-01-20] MEDS ORDERED: LORazepam 1 MG in SYRINGE 0.5 ML IV PRN (10:05)
[2024-01-20] MEDS: LORazepam 1 MG in SYRINGE 0.5 ML IV SCH (10:44)
--- NOTE | 2024-01-20 12:55 | Discharge Summary ---
Discharge Summary Date of Service January 20, 2024 Principal Dx & Hospital Course #1 = Principal Diagnosis (1) Metastatic cancer: hx of metastatic lung cancer Plan for inpatient admission for comfort care as per palliative care Palliative care consulted - Orders placed -now on dilaudid drip - no longer taking PO - all other medications have been stopped Accepted for GIP today with [facility] (2) Acute respiratory failure with hypoxia: titrate as needed for comfort Plan VTE Prophylaxis - not prescribed due to comfort care status Disposition - GIP today Family updated at bedside Discussed case with Jeannine Junior, palliative care Admission HPI Per Admitting Provider Cindi Santiago is a 63-year-old female with metastatic lung cancer who presents to the ER with worsening respiratory status, chest pain and hypoxia. She was in the process of getting her supplemental oxygen therapy but continued to decline and therefore came to the ER. She was seen by her palliative provider and recommended admission for comfort care/end-of-life care. Discharge Exam unresponsive slow breathing rate appears comfortable Discharge Plan Discharge Items Patient Disposition: Hospice - Medical Facility Reason For Visit: HOSPICE CARE, HYPOXIA Discharge Diagnosis: hospice Condition on Discharge: Serious Activity: Resume your previous activity Non-emergency contact: Primary Care Provider Call non-emergency contact if: you have any medication questions Follow-up/Referrals: Poonam Moss, [Primary Care Provider] - Diet: Regular Addtl Attending Provider Instructions: Discharged for GIP Pending Studies at Discharge: No Stand-Alone Forms: 3seventy Skilled Items Patient informed of condition?: Yes DNR: Yes Discharge Level of Care: Other Communicable Disease: No Discharge Prognosis: Deteriorating Lines: None Urinary Catheter: Yes Medications and DC Order Prescriptions: New glycopyrrolate 0.2 mg/mL Solution 0.4 mg IV Q4H PRN (Reason: secretions) Qty: 25 0RF Discontinued prochlorperazine maleate [Compazine] 10 mg tablet 10 mg PO Q6H PRN (Reason: Nausea) (DME) Ultra-Light Rollator Misc See Rx Instructions .Route Qty: 1 0RF Rx Instructions: As directed levothyroxine [Synthroid] 112 mcg tablet 112 mcg PO DAILY 90 Days Qty: 90 3RF pantoprazole [Protonix] 40 mg tablet,delayed release (DR/EC) 40 mg PO DAILY 90 Days Qty: 90 0RF calcium carbonate-vitamin D3 [Os-Drew 500 + D3] 500 mg-15 mcg (600 unit) tablet 1 tab PO DAILY Qty: 30 0RF Trelegy Ellipta 100-62.5-25 mcg blister with device 1 inh inhalation DAILY Qty: 60 3RF albuterol sulfate 90 mcg/actuation HFA aerosol inhaler 2 puff inhalation Q6H PRN (Reason: Shortness Of Breath) Centrum Silver Women 8 mg iron-400 mcg-300 mcg tablet 1 tab PO DAILY cholecalciferol (vitamin D3) 50 mcg (2,000 unit) capsule 50 mcg PO DAILY (DME) nebulizer accessories Kit See Rx Instructions .ROUTE .MEDSUPPLY Qty: 2 0RF Rx Instructions: As directed (DME) compressor, for nebulizer Device See Rx Instructions .ROUTE .MEDSUPPLY Qty: 1 0RF Rx Instructions: As directed ipratropium-albuterol 0.5 mg-3 mg(2.5 mg base)/3 mL solution for nebulization 3 ml inhalation Q4H PRN (Reason: shortness of breath or wheezing) Qty: 180 5RF hydromorphone [Dilaudid] 8 mg tablet 8 mg PO Q4H PRN (Reason: severe breakthru cancer pain) 30 Days Qty: 180 0RF (DME) walker Misc See Rx Instructions .Route Qty: 1 0RF Rx Instructions: As directed Tepmetko 225 mg tablet 0 mg PO HS Rx Instructions: On hold per pt until told otherwise. Original Directions: 225mg by mouth at bedtime clonazepam 1 mg tablet 1 mg PO TID PRN (Reason: Anxiety) dexamethasone 2 mg tablet 2 mg PO QAM Discharge Orders: Discharge Order (Routine); Ordered 01/20/24 Ordered By: Humaira Can Admission Data Admit Date/Time: 01/17/24 15:54 Attending Provider: Aubree Forrester Admit Provider: Jaspal Doherty Primary Care Provider: Poonam Moss Other Providers: [facility],Home Healthcare; Jaspal Doherty Hospital Stay Data Consultations 01/17/24 14:59 ED Decision to Admit Stat Pending Results Patient Have Any Pending Studies at Discharge: No Discharge Instructions Given to Patient (Per Discharging Provider) Discharged for GIP Total Time Total Time Spent Total Time Spent (In Minutes): Time spent day of discharge 25 minutes including direct patient care, medication reconciliation, documentation, review of labs and images, and coordination of care. Coding Level of Care Code 54133 IN/OBS DISCH 30 MIN/LESS Diagnoses Metastatic cancer C79.9 Area of secondary neoplastic involvement: unspecified site Acute respiratory failure with hypoxia J96.01
== END 2024-01-20 13:03 | disposition hospice, inpatient (51) | DRG 951 ==
LOC: ED 14:23 → SUATTDRO 15:54 → 3E 15:54

== ENCOUNTER 2024-01-20 13:07 | Inpatient (IN) ==
[2024-01-20] MEDS ORDERED: LORazepam 1 MG in SYRINGE 0.5 ML IV PRN (13:19)
[2024-01-20] MEDS ORDERED: HYDROmorphone BOLUS from BAG IV PRN (13:19)
--- NOTE | 2024-01-20 13:30 | History & Physical Report ---
Date of Service January 20, 2024 Assessment & Plan (1) Metastatic cancer: Plan: Patient with metastatic lung cancer, present to the ER on 01/16 with worsening pain and SOB. Was approved for GIP on 01/19 Palliative care consulted - Orders placed -now on dilaudid drip - no longer taking PO - all other medications have been stopped Patient is [employer] Plan VTE Prophylaxis - not prescribed due to comfort care status Family updated at bedside Discussed case with Jeannine Junior, palliative care Admission and Anticipated Discharge Date Admission Date: January 20, 2024 History of Present Illness Primary Care Provider: Poonam Moss DO Cindi was readmitted under GIP status. She has metastatic lung cancer. Patient visited today with palliative care and family present at bedside. Cindi is unresponsive but appears comfortable. Allergies Allergy/AdvReac Type Severity Reaction Status Date / Time latex Allergy Intermediate rash Verified 01/17/24 16:12 Sulfa (Sulfonamide Allergy Intermediate BLISTERED Verified 01/17/24 16:12 Antibiotics) MOUTH oxycodone [From Percocet] AdvReac Unknown CAN'T Verified 01/17/24 16:12 REMEMBER Home Medications Medication Instructions Recorded Confirmed Type glycopyrrolate 0.2 mg/mL injection 0.4 mg (2 mL) IV Q4H PRN 01/20/24 Rx solution secretions #25 mL Past Med/Surg History Problem List (Updated 01/20/24 @ 00:07 by Background Juwan) SOB (shortness of breath) (Acute) Metastatic cancer (Acute) Hypoxia (Acute) Acute respiratory failure with hypoxia Nocturnal dyspnea Metastasis to lung Dyspnea and respiratory abnormalities Morning headache Poor sleep Gait instability Hypothyroidism Acid reflux Thrush Psychosocial distress Counseling regarding end of life decision making Physician orders for life-sustaining treatment (POLST) form indicates patient wish for [id number] status Advanced care planning/counseling discussion Palliative care by specialist Weakness generalized (Unknown) Insomnia Cancer related pain Secondary malignancy of muscle Right knee pain Malnutrition (Acute) Mucositis Electrolyte abnormality Dysphagia Oral thrush Bilateral conjunctivitis GROSS (dyspnea on exertion) Cough Abnormal CT scan of lung Pulmonary nodule Lung mass Mediastinal adenopathy Hemoptysis Hypertension Hypercholesteremia Pace esophagus Fibromyalgia Lung cancer Pleomorphic carcinoma diagnosed 09/14/21 S/P bronchoscopy Lung cancer metastatic to brain Anxiety Depression Malignant neoplasm of lower lobe, right bronchus or lung (Chronic) Brain metastases (Chronic) Medical History 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 Recurrent urinary tract infection Diverticulosis Hiatal hernia IBS (irritable bowel syndrome) Ovarian cyst Thyroid disorder Graves disease Surgical History History of colonoscopy H/O endoscopy H/O shoulder surgery Right shoulder - rotator cuff surgery History of surgery Benign left breast removed at 13yo - benign per pt History of cholecystectomy H/O: hysterectomy Family History Mother , 84yo Heart disease aortic aneurysm Cardiac stents Cancer Pt unsure of type Stroke Diabetes Aunt Cancer Lung cancer Uncle Cancer Father , 68yo Ruptured aortic aneurysm Hypertension Sister Aortic aneurysm Sister No problems noted. Brother No problems noted. Son No problems noted. Daughter No problems noted. Daughter History of brain surgery [place] [facility] [place] Social History Smoking Status: Former smoker Tobacco Type: Cigarettes Age Started Using Tobacco: 13; Age Quit Using Tobacco: 60; packs per day: 0.5; Cigarettes Per Day: 10+; Second Hand Exposure: No; Do You Dip or Chew Tobacco: No; Tobacco Cessation Education Requested by Patient: No Hx Alcohol Use: No Hx Substance Use: No Preferred Language: Estonian Communication Ability: Unable Visual Impairment: No Limitations Hearing Ability: Normal [employer] Required: No Beliefs That Will Affect Care: None marital status: Current Living Situation: Spouse and Family Current Living Situation Comment: lives with daughter current occupational status: retired How many Children do You have: 3 Other Information That Helps Us Care for You: No Feels Safe at Home: Yes Safety Concerns: Feels Safe At This Time Childhood Exposure to Second-Hand Smoke: Yes Diet: regular caffeine: Yes (2 cups/day) during the past year weight has: remained stable Dental Care, Regularly: Yes Physical Activity Frequency: Daily Seatbelt Use: always Sunscreen Use: Yes Assistive Devices: Glasses and Oxygen - Continuous Review of Systems Review of Systems: Unobtainable due to reduced consciousness Physical Exam Physical Exam: resting breathing less labored compared to yesterday unresponsive does not appear to be in pain Code Status & VTE Plan VTE Prophylaxis Plan VTE Prophylaxis will be ordered: No Reason for no VTE drug order: Treatment not indicated PG Care Time/CCT Total # of Minutes Spent Total Time Spent with Patient: Total time spent is greater than 50% in coordination of care (as documented) at patient's floor/unit and/or counseling patient: Coding Level of Care Code 37124 INT INP/OBS CARE MIN Diagnoses Metastatic cancer C79.9 Area of secondary neoplastic involvement: unspecified site (1) Metastatic cancer Area of secondary neoplastic involvement: unspecified site Qualified Code(s): C79.9 - Secondary malignant neoplasm of unspecified site
[2024-01-20] MEDS: HYDROmorphone/NSS 100 MG/100 ML BAG IV SCH (14:22)
[2024-01-20] MEDS: LORazepam 1 MG in SYRINGE 0.5 ML IV SCH (18:43)
[2024-01-20] MEDS: GLYCOPYRROLATE 0.2 MG/ML VIAL IV PRN (23:52)
--- NOTE | 2024-01-21 00:58 | Death Pronouncement Note ---
Date of Service January 21, 2024 Pronouncement Note Admission Date Admission Date: January 20, 2024 Contributing Factors (1) Metastatic cancer: Summary Additional details: Alerted by nursing that patient had ceased to breathe. Resident to bedside. Family at bedside. Excused themselves for the exam. Absent respirations. Absent breath sounds. Absent heart sounds. Absent pulse. Pupils dilated and fixed. No response to pain. TOD called 00:47. Additional Data Confirmation of : no pulse, no respirations, no heart sounds and pupils fixed and dilated Family: at bedside Attending/PCP notified?: Yes Attending physician: Aubree Forrester MD Was code activated?: No Autopsy requested?: No telecommunications facility examiner notified?: No Organ bank notified?: No Resident Activity Tracking Resident Involvement: Resident Care Provided Care Provided: Adult Hospital Medicine
--- NOTE | 2024-01-21 08:22 | Discharge Summary ---
Discharge Summary Date of Service January 21, 2024 Principal Dx & Hospital Course #1 = Principal Diagnosis (1) Metastatic cancer: Patient with metastatic lung cancer, present to the ER on 01/16 with worsening pain and SOB. Was approved for GIP on 01/19 Patient was comfortable with Dilaudid drip and scheduled ativan, surrounded by family. Patient at 0047. Plan Patient Admission HPI Per Admitting Provider Cindi was readmitted under GIP status. She has metastatic lung cancer. Patient visited today with palliative care and family present at bedside. Cindi is unresponsive but appears comfortable. Discharge Plan Discharge Items Patient Disposition: Other Date/Time: 01/21/24 00:47 Supervising Physician Co-Signing Physician Notes Attending Attestation - I agree w/ the rasheed components of this discharge/ summary as outlined by ALEX Can. Jaspal Schultz MD Total Time Total Time Spent Total Time Spent (In Minutes): Time spent day of discharge 15 minutes including direct patient care, medication reconciliation, documentation, review of labs and images, and coordination of care. Coding Level of Care Code 49103 IN/OBS DISCH 30 MIN/LESS Diagnoses Metastatic cancer C79.9 Area of secondary neoplastic involvement: unspecified site
== END 2024-01-21 01:41 | disposition expired | DRG 948 ==
LOC: 3E 13:07
DX: Z87.891 Personal history of nicotine dependence; Z88.5 Allergy status to narcotic agent; C34.31 Malignant neoplasm of lower lobe, right bronchus or lung; C79.89 Secondary malignant neoplasm of other specified sites; C79.31 Secondary malignant neoplasm of brain; Z91.040 Latex allergy status; Z80.1 Family history of malignant neoplasm of trachea, bronchus and lung; Z88.2 Allergy status to sulfonamides; G89.3 Neoplasm related pain (acute) (chronic); Z51.5 Encounter for palliative care